=== PATIENT | male | born 1960 | race Caucasian/White ===

== ENCOUNTER → 2016-11-13 | Day surgery (SDC) | payer OTHER ==
[~2016-11-13] MED LIST: ASPI81 PO; BUPIVACAINE HCL PF 0.5% 10 ML VIAL ONE; DOXY150C OR; ENAL20TA PO; GABA400C5 OR; GLIM4 PO; GLUCTAB PO; HYDR10TA16 PO; HYDR12.56 PO; LACTATED RINGER'S 1000 ML INJ 1,000 ML ONE; MIDAZOLAM HCL 2 MG/2 ML VIAL ONE; PROPOFOL 200 MG/20 ML AMP IV ONE; SULF1TAB47 PO; VIAG100T PO; ZOCO80TA PO; ceFAZolin 2 GM PREMIX 50 ML ONE
--- NOTE | 2016-11-14 09:56 | MP ---
cc: NEREIDA LOPEZ DPM, WESLEY M.D. DATE OF SURGERY: 11/13/2016 PREOPERATIVE DIAGNOSIS Chronic left diabetic foot ulcer. POSTOPERATIVE DIAGNOSIS Chronic left diabetic foot ulcer. PROCEDURE PERFORMED Sharp excisional debridement of ulcer down to joint capsule plantar first MPJ with application of Apligraf skin graft. Deep culture taken. ESTIMATED BLOOD LOSS Less than 30 mL. COMPLICATIONS None. ANESTHESIA LMA general with local 5 cc of 0.25% Marcaine plain infiltrated in the area. DRAINS None. TOURNIQUET TIME None. DISPOSITION PACU then DC home once stable per same-day surgery criteria. JUSTIFICATION FOR PROCEDURE A 56-year-old male who has a history of a neuropathic ulcer. This ulcer became very small over the last year or so, however, has drastically increased in size. Multiple attempts at conservative measures including offloading and debridement in the office took place without any resolution. The patient never showed any signs of infections to chronic ulcer. We devised a plan to move forward with sharp excisional debridement with application of skin graft to facilitate healing. The patient understood that this may be the first of many surgeries to get the ulcer to heal. The patient continues to smoke and the patient has moderate glucose control. He is followed by his primary care doctor. PROCEDURE IN DETAIL Under mild sedation the patient was brought into the operating room and placed on the operating table in the supine position. Following the induction of LMA general anesthesia the left lower extremity was scrubbed, prepped and draped in the usual aseptic fashion. The foot was elevated and examined. There was noted to be a callous rimmed full-thickness ulceration at the plantar aspect of the first MPJ. The ulcer initially only appeared to probe approximately 4-5 mm. However upon debriding the wound there was noted to be a deep invagination down to joint capsule. At first I thought this was the sesamoid, however, upon debriding the flexor hallucis longus was then seen and the sesamoids were hard, intact, without any signs of bony pathology. A deep culture was taken at this time. All nonviable tissue was debrided to viable bleeding tissue. Apligraf was then sutured deep within the wound in layers and a bolster bandage applied. Next, a well-padded below the knee Esquivel compressive bandage and a posterior splint was applied. The patient was then extubated uneventfully. She was transferred from OR to PACU with all vital signs stable. The patient is non-weightbearing. The patient will follow-up within six days. The patient will likely need a repeat application unless over the next 2-3 weeks there is significant improvement in the wound. SHEILA Matson /1:35 PM /9:46 AM
== END | disposition home or self-care (01) ==
LOC: ESDC 11:47
PROVIDERS: ATTEND Podiatrist Foot & Ankle Surgery
DX: E11.621 Type 2 diabetes mellitus with foot ulcer (principal); Z79.84 Long term (current) use of oral hypoglycemic drugs; L97.529 Non-pressure chronic ulcer of other part of left foot with unspecified severity
CPT/HCPCS: 00400; 11042; 15275; 82948; 87070; 87102; 87205; 87206; J0690; J2250; J3010; J7120; Q4101

== ENCOUNTER → 2016-12-07 | Day surgery (SDC) | payer OTHER ==
[~2016-12-07] MED LIST changes: -BUPIVACAINE HCL PF 0.5% 10 ML VIAL ONE; +BUPIVACAINE HCL PF 0.75% 30 ML VIAL ONE; +LIDOCAINE 1.5%/EPINEPHrine 1:200,000 PF SOLN 30 ML AMP ONE; -MIDAZOLAM HCL 2 MG/2 ML VIAL ONE; +MIDAZOLAM HCL 5 MG/ML VIAL (1 ML) ONE; +MORPHINE SULFATE 4 MG/ML INJ ONE; +ONDANSETRON HCL 4 MG/2 ML VIAL IV PUSH ONE
--- NOTE | 2016-12-08 15:02 | MP ---
cc: WILDER PACHECO M.D. DATE OF SURGERY: 12/07/2016. PREOPERATIVE DIAGNOSIS: 1. Left shoulder rotator cuff tear. 2. Left shoulder impingement syndrome. 3. Left shoulder labral tear. 4. Left shoulder adhesive capsulitis. POSTOPERATIVE DIAGNOSIS: 1. Left shoulder rotator cuff tear. 2. Left shoulder impingement syndrome. 3. Left shoulder labral tear. 4. Left shoulder adhesive capsulitis. OPERATIVE PROCEDURE PERFORMED: 1. Left shoulder arthroscopic rotator cuff repair. 2. Left shoulder arthroscopic subacromial decompression. 3. Left shoulder arthroscopic extensive debridement of the labral tear. 4. Left shoulder arthroscopic extensive lysis of adhesions with manipulation under anesthesia. SURGEON: Dr. Wilder Pacheco. FERRY ENGINEER: MICKI Gardner ANESTHESIA: General with interscalene block. ESTIMATED BLOOD LOSS: Less than 50 cc. COMPLICATIONS: None. IMPLANTS USED: Arthrex. JUSTIFICATION FOR THE PROCEDURE: This patient is a 56-year-old male who injured his left shoulder. He has had persistent symptoms of pain, weakness and stiffness in regards to his condition. He failed extensive conservative treatment. Clinical exam as well as MRI confirmed the above-named findings. The patient was counselled as to the risks, benefits and alternatives to the above-named proposed surgical procedure and did wish to proceed with surgery. DESCRIPTION OF THE PROCEDURE IN DETAIL: Written consent was obtained. The patient did receive a preoperative anterior scalene block to the left upper extremity. The patient was taken to the operating room and general anesthesia was administered as well as 2 grams of IV Ancef. The patient was carefully turned to the right lateral decubitus position and a lateral arm roll was placed. All bony prominences and pressure points were well padded. The patient's neck was carefully monitored and kept neutral. The left shoulder was then placed with an arthroscopic arm barnes and 10 pounds of traction gently applied. The left shoulder was prepped and draped using isopropyl alcohol, Hibiclens solution and DuraPrep solution. After a time out was performed, a standard posterior and anterior glenohumeral arthroscopic portal was established. The glenohumeral joint revealed extensive evidence of capsulitis and scar tissue formation. There was evidence of extensive labral tearing along the anterior, superior and posterior portions as well. An arthroscopic shaver was introduced from the anterior portal and extensive debridement of the labrum was performed to include the three o'clock position to the twelve o'clock and the nine o'clock position. There was evidence of severe capsulitis and this was also extensively debrided as well with lysis of adhesions. There was evidence of full thickness tear of the rotator cuff tendon as visualized from the glenohumeral joint along the undersurface of the rotator cuff supraspinatus insertion. This was debrided. Attention was turned to the subacromial space where there was evidence of significant impingement and bursitis. An arthroscopic shaver was introduced from a lateral portal. A subacromial decompression was performed. A shaver was used to perform extensive bursectomy. The arthroscopic bur was used to perform an acromioplasty. The was used to release the coracoacromial ligament. An Arthrex Scorpion device was used to shuttle #2 FiberTape suture through the anterior and posterior portions of the torn tendon in a horizontal mattress pattern. A #2 FiberLink suture was also applied. The sutures were then placed through the eyelet of an Arthrex 4.75 mm Bio SwiveLock anchor. The anchor was inserted in the tuberosity after appropriate tensioning of the sutures. There was excellent stability after carefully examining and probing the repair. The arm was then gently taken through a full range of motion with gentle manipulation and again all capsule adhesions were felt to be freed and the rotator cuff repair was intact. At the conclusion of the surgical procedure, the portals were closed with 3-0 Prolene suture. Sterile dressings were applied. The patient was placed into a sling and swathe immobilizer. He tolerated the procedure well with no intraoperative complications noted. NOTE: Priyank De Jesus, physician home health assistant-certified, was present during the entire procedure to include patient positioning and the procedure itself. The medical necessity of a physician home health assistant was indicated in this case due to the complexity of the procedure itself. He assisted with appropriate manipulation of the arm and also manipulation of the camera. He also assisted with passage of sutures and implantation of the suture anchor for the purposes of rotator cuff tendon repair. MD KAYLA Bateman/OMEGA /11:14 AM /2:44 PM
== END | disposition home or self-care (01) ==
LOC: ESDC 08:12
PROVIDERS: ATTEND Orthopaedic Surgery Sports Medicine
DX: M75.122 Complete rotator cuff tear or rupture of left shoulder, not specified as traumatic (principal); M75.42 Impingement syndrome of left shoulder; S43.402A Unspecified sprain of left shoulder joint, initial encounter; M75.02 Adhesive capsulitis of left shoulder; E11.9 Type 2 diabetes mellitus without complications; Z79.84 Long term (current) use of oral hypoglycemic drugs
CPT/HCPCS: 01630; 01991; 29823; 29826; 29827; 64417; 82948; C1713; J0690; J2250; J2270; J2405; J7120

== ENCOUNTER 2018-08-04 19:38 | Inpatient (IN) ==
[2018-08-04] MEDS ORDERED: Piperacil/Tazo 3.375 GM Premix 50 ML IV.SIG ONE (20:24)
[2018-08-04] MEDS ORDERED: Vancomycin Inj 1,250 MG in Sodium Chlor 0.9% Inj 250 ML IV.SIG ONE (20:24)
--- NOTE | 2018-08-04 20:24 | ED ---
HPI General Chief Complaint: Extremity Injury, Lower Stated Complaint: foot ulcer x1 wk Time Seen by Provider: 08/04/18 19:57 Source: patient and family Mode of arrival: ambulatory Limitations: no limitations History of Present Illness HPI Narrative: Patient has history of ulcer to left foot with significant penetration to lateral aspect of proximal phalanx of great toe on the left. Patient has been seen and evaluated by PMD and sent in for direct admission. However, the initiation to admission process was not instituted. For that reason this patient is in the emergency department. Patient has history of neuropathy with loss of sensation to both lower extremities so that he has no pain to those areas. Also he has no history of chills and fever. Related Data Home Medications Medication Instructions Recorded Confirmed aspirin 81 mg PO DAILY 08/04/18 08/04/18 empagliflozin [Jardiance] 25 mg PO DAILY 08/04/18 08/04/18 gabapentin 600 mg PO DAILY 08/04/18 08/04/18 glimepiride 4 mg PO QAM 08/04/18 08/04/18 hydrochlorothiazide 25 mg PO DAILY 08/04/18 08/04/18 hydrocodone-acetaminophen [Macon] 1 tab PO Q4-6H PRN 08/04/18 08/04/18 insulin aspart U-100 [Novolog 15 unit SUBCUT BID 08/04/18 08/04/18 Flexpen U-100 Insulin] insulin detemir U-100 [Levemir 22 unit SUBCUT DAILY 08/04/18 08/04/18 U-100 Insulin] lisinopril 10 mg PO DAILY 08/04/18 08/04/18 simvastatin 80 mg PO QPM 08/04/18 08/04/18 Allergies Allergy/AdvReac Type Severity Reaction Status Date / Time No Known Allergies Allergy Verified 08/04/18 19:47 Review of Systems ROS: all other systems reviewed are negative [facility] Medical History Medical History Diabetes (Acute) Heart attack (Acute) Hypertension (Acute) Osteomyelitis (Acute) Skin cancer (Acute) Surgical History Surgical History H/O heart artery stent (Acute) Social History Social History Substance History: No History of Abuse Smoking Status: Current every day smoker Tobacco Type: Cigars How Often Do You Have a Drink Containing Alcohol: Never Recent Travel in [facility] within the Last 8 Weeks: No Recent Out of Country Travel within the Last 8 Weeks: No Immunization History Tetanus Immunization: <5 Years Exam Narrative Exam Narrative: GENERAL: Alert and oriented SKIN: Focused skin assessment warm/dry. HEAD: Atraumatic. Normocephalic. EYES: Pupils equal and round. No scleral icterus. No injection or drainage. ENT: No nasal bleeding or discharge. Mucous membranes pink and moist. NECK: Trachea midline. No JVD. CARDIOVASCULAR: Regular rate and rhythm. No murmur appreciated. RESPIRATORY: No accessory muscle use. Clear to auscultation. Breath sounds equal bilaterally. GASTROINTESTINAL: Abdomen soft, non-tender, nondistended. Hepatic and splenic margins not palpable. MUSCULOSKELETAL: Penetrating ulcer to medial aspect of left great toe with desquamation and local cellulitis surrounding. Lymphatic: No adenitis or lymphangitis NEUROLOGICAL: Awake and alert. Decreased sensation to both lower extremities Course Initial Documented Vital Signs Temperature 98.9 F 08/04/18 19:43 Pulse Rate 86 08/04/18 19:43 Respiratory Rate 18 08/04/18 19:43 Blood Pressure 129/81 08/04/18 19:43 Pulse Oximetry 99 08/04/18 19:43 Last Documented Vital Signs Temperature 98.9 F 08/04/18 19:43 Pulse Rate 86 08/04/18 19:43 Respiratory Rate 18 08/04/18 19:43 Blood Pressure 129/81 08/04/18 19:43 Pulse Oximetry 99 08/04/18 19:43 Medical Decision Making [facility] Narrative Medical decision making narrative: Patient has penetrating ulcer with potential osteomyelitis of left great foot. Penetration is to the area of the proximal phalanx of the great toe on the left. Patient admitted with IV antibiotics with MRI tomorrow and further evaluation depending on results. Medical Screen Exam Complete: Yes Emergency Medical Condition: Yes Lab Data Result diagrams: 08/04/18 20:30 08/04/18 20:30 Lab Results 08/04/18 08/04/18 Range/Units 20:30 20:30 CBC w Diff Auto diff final WBC 9.8 (4.0-11.0) th/mm3 RBC 4.47 L (4.50-5.90) mil/mm3 Hgb 12.3 L (13.0-17.0) gm/dL Hct 37.5 L (39.0-51.0) % MCV 83.8 (80.0-100.0) fL MCH 27.6 (27.0-34.0) pg MCHC 32.9 (32.0-36.0) % RDW 13.1 (11.6-17.2) % Plt Count 290 (150-450) th/mm3 MPV 8.1 (7.0-11.0) fL Neut % (Auto) 72.8 H (16.0-70.0) % Lymph % (Auto) 16.8 (9.0-44.0) % Wilson % (Auto) 8.1 H (0.0-8.0) % Eos % (Auto) 1.1 (0.0-4.0) % Baso % (Auto) 1.2 (0.0-2.0) % Neut # (Auto) 7.2 (1.8-7.7) th/mm3 Lymph # (Auto) 1.6 (1.0-4.8) th/mm3 Wilson # (Auto) 0.8 (0.0-0.9) th/mm3 Eos # (Auto) 0.1 (0.0-0.4) th/mm3 Baso # (Auto) 0.1 (0.0-0.2) th/mm3 WBC Differential . Differential Comment . Sodium 132 L (136-145) meq/L Potassium 3.7 (3.5-5.1) meq/L Chloride 95 L (98-107) meq/L Carbon Dioxide 25.8 (21.0-32.0) meq/L Anion Gap 11 (5-15) meq/L BUN 32 H (7-18) mg/dL Creatinine 1.80 H (0.60-1.30) mg/dL Estimated GFR 39 L (>89) mL/min Random Glucose 358 H (74-106) mg/dL Calcium 8.1 L (8.5-10.1) mg/dL Discharge Plan Discharge Disposition Patient Disposition: ED Admit(ED Internal Use Only) Discharge Condition Condition: Stable Discharge Order Discharge Orders: ED Use Only Admit Order (Routine); Ordered 08/04/18 Ordered By: Russell Askew Discharge Details Discharge Comment: Penetrating ulcer over proximal phalanx of left great toe; rule out osteomyelitis Physicians Team ED Provider: Russell Askew Primary Care Provider: Mono Cisneros Rxs /Orders / Referrals /Forms Prescriptions: No Action gabapentin 600 mg Tablet 600 mg PO DAILY RF: 0 aspirin 81 mg Tablet,Chewable 81 mg PO DAILY RF: 0 insulin aspart U-100 [Novolog Flexpen U-100 Insulin] 100 unit/mL Insulin Pen 15 unit SUBCUT BID RF: 0 insulin detemir U-100 [Levemir U-100 Insulin] 100 unit/mL Solution 22 unit SUBCUT DAILY RF: 0 simvastatin 80 mg Tablet 80 mg PO QPM RF: 0 hydrocodone-acetaminophen [Macon] 10-325 mg Tablet 1 tab PO Q4-6H PRN (Reason: Pain) RF: 0 lisinopril 10 mg Tablet 10 mg PO DAILY RF: 0 glimepiride 4 mg Tablet 4 mg PO QAM RF: 0 hydrochlorothiazide 25 mg Tablet 25 mg PO DAILY RF: 0 empagliflozin [Jardiance] 25 mg Tablet 25 mg PO DAILY RF: 0 Status ED Status: With Doctor
[2018-08-04 20:45] LABS: Baso # (Auto) 0.1 th/mm3 (0.0-0.2); Baso % (Auto) 1.2 % (0.0-2.0); Eos # (Auto) 0.1 th/mm3 (0.0-0.4); Eos % (Auto) 1.1 % (0.0-4.0); Hematocrit 37.5 % (39.0-51.0); Hemoglobin 12.3 gm/dL (13.0-17.0); Lymph # (Auto) 1.6 th/mm3 (1.0-4.8); Lymph % (Auto) 16.8 % (9.0-44.0); Mean Corpuscular HGB Conc 32.9 % (32.0-36.0); Mean Corpuscular Hemoglobin 27.6 pg (27.0-34.0); Mean Corpuscular Volume 83.8 fL (80.0-100.0); Mean Platelet Volume 8.1 fL (7.0-11.0); Mono # (Auto) 0.8 th/mm3 (0.0-0.9); Mono % (Auto) 8.1 % (0.0-8.0); Neut # (Auto) 7.2 th/mm3 (1.8-7.7); Neut % (Auto) 72.8 % (16.0-70.0); Platelet Count 290 th/mm3 (150-450); Red Blood Count 4.47 mil/mm3 (4.50-5.90); Red Cell Distribution Width 13.1 % (11.6-17.2); White Blood Count 9.8 th/mm3 (4.0-11.0)
[2018-08-04 20:55] LABS: Potassium 3.7 meq/L (3.5-5.1)
[2018-08-04 20:57] LABS: Calcium 8.1 mg/dL (8.5-10.1)
[2018-08-04 20:58] LABS: Carbon Dioxide 25.8 meq/L (21.0-32.0)
[2018-08-04] MEDS ORDERED: Acetaminophen 325 MG Tablet PO PRN (22:40)
[2018-08-04] MEDS ORDERED: Bisacodyl 10 MG Supp RECTAL PRN (22:40)
[2018-08-04] MEDS ORDERED: Dextrose 50% in Water 50 ML Vial IV.PUSH PRN (22:40)
[2018-08-04] MEDS ORDERED: Vancomycin Consult Pharmacy OTHER PRN (22:56)
--- NOTE | 2018-08-04 23:35 | XR ---
EXAM DATE: 08/04/2018 11:30 PM EST AGE/SEX: 58 years / Male INDICATIONS: Infection. Large ulcer left foot. CLINICAL DATA: This is the patient's initial encounter. Patient reports that signs and symptoms have been present for 3 days and indicates a pain score of 4/10. MEDICAL/SURGICAL HISTORY: Diabetes mellitus type II. None. COMPARISON: No prior exams available for comparison. FINDINGS: 3 views of left foot. Moderate severity narrowing and osteophyte formation at the great toe metatarso phalangeal joint. Mild osteophyte formation and narrowing of the great toe interphalangeal joint. Sma ll osteophytes at the second toe distal interphalangeal joint. Bone alignment within normal limits. N o evidence of fracture. Soft tissue defect of the great toe laterally adjacent to the interphalangeal joint and distal phala nx. Slight contour deformity of the lateral distal pole of the great toe proximal phalanx suspicious for early bone erosion. CONCLUSION: Soft tissue ulceration lateral aspect great toe distally. Possible early bone erosion of the distal p ole proximal phalanx indicating possible osteomyelitis. Electronically signed by: Russell Esquivel MD 08/04/2018 11:33 PM EST
[2018-08-04] MEDS: Sod Chloride 0.9% Inj 1,000 ML IV.CONT SCH (23:54)
[2018-08-04] MEDS: Temazepam 15 MG Capsule PO PRN (23:54)
[2018-08-04] MEDS: Enoxaparin Inj 30 MG/0.3 ML Syringe SQ SCH (23:55)
[2018-08-05] MEDS ORDERED: Vancomycin Inj 1,500 MG in Sodium Chlor 0.9% Inj 500 ML IV.SIG ONE (05:00)
[2018-08-05 06:13] LABS: Baso % (Auto) 0.3 % (0.0-2.0); Eos # (Auto) 0.1 th/mm3 (0.0-0.4); Eos % (Auto) 1.4 % (0.0-4.0); Hematocrit 36.2 % (39.0-51.0); Hemoglobin 12.1 gm/dL (13.0-17.0); Lymph % (Auto) 19.3 % (9.0-44.0); Mean Corpuscular HGB Conc 33.3 % (32.0-36.0); Mean Corpuscular Volume 84.1 fL (80.0-100.0); Mean Platelet Volume 7.8 fL (7.0-11.0); Mono # (Auto) 0.9 th/mm3 (0.0-0.9); Mono % (Auto) 9.2 % (0.0-8.0); Neut # (Auto) 7.1 th/mm3 (1.8-7.7); Neut % (Auto) 69.8 % (16.0-70.0); Platelet Count 277 th/mm3 (150-450); Red Cell Distribution Width 13.4 % (11.6-17.2); White Blood Count 10.1 th/mm3 (4.0-11.0)
[2018-08-05 06:15] LABS: Chloride 101 meq/L (98-107); Potassium 3.9 meq/L (3.5-5.1); Sodium 139 meq/L (136-145)
[2018-08-05 06:19] LABS: Calcium 8.2 mg/dL (8.5-10.1)
[2018-08-05 06:20] LABS: Albumin 2.5 g/dL (3.4-5.0); Anion Gap 6 meq/L (5-15); Carbon Dioxide 31.6 meq/L (21.0-32.0)
[2018-08-05 06:31] LABS: Alanine Aminotransferase 30 U/L (12-78); Alkaline Phosphatase 59 U/L (45-117); Aspartate Aminotransferase 17 U/L (15-37); Blood Urea Nitrogen 29 mg/dL (7-18); Glomerular Filtration Rate 48 mL/min (>89); Glucose,Random 121 mg/dL (74-106); Total Protein 7.1 g/dL (6.4-8.2)
--- NOTE | 2018-08-05 08:47 | MB ---
cc: David Chua DPM, Wesley J MD PhD DATE: 08/05/2018 REASON FOR CONSULTATION: Left foot ulcer infection, cellulitis. HISTORY OF PRESENT ILLNESS: This is a 58-year-old male who is well-known to my practice. The patient approximately 1 week ago noted a significant redness of the hallux after a trip to [place]. He presented to urgent care in which he was given a prescription for clindamycin. The patient had no obvious fevers, chills. The patient was seen yesterday in my office. The presentation of the infection was severe with soft tissue loss involving the hallux, severe proximal spreading cellulitis. I advised the patient to present to the emergency room for IV antibiotics, evaluation, and treatment for likely osteomyelitis with severe skin and soft tissue infection. Currently, I am seeing the patient bedside. He has had an uneventful evening. He denies any pain at this time. PAST MEDICAL HISTORY: Diabetes, heart attack, hypertension, osteomyelitis, skin cancer, chronic ulceration of the left foot, as well as peripheral neuropathy. PAST SURGICAL HISTORY: Heart artery stenting. Also, excision of skin cancer plantar foot by plastic surgery with flap advancement. ALLERGIES: NO KNOWN DRUG ALLERGIES. ACTIVE MEDICATIONS: Reviewed and verified. OUTPATIENT/INPATIENT MEDICATIONS: Reviewed and verified. The patient is receiving vancomycin and Zosyn. SOCIAL HISTORY: The patient is a tobacco user, cigar. PHYSICAL EXAMINATION: VITAL SIGNS: Temperature 97.5, pulse rate 76, respiratory rate 18, blood pressure 123/67. He is saturating 95% on room air. GENERAL: Alert and oriented male seen at bedside exhibiting nonlabored respirations. He is verbal appropriate. EXTREMITIES: Left lower extremity focused exam: There is noted to be a slight decrease in erythema and edema localized to the patient's forefoot. There is exposed IPJ capsule and probing directly to bone at the lateral aspect of the hallux. There is a slight malodor. There is mixed serosanguineous purulent drainage. This appears to be unchanged from the office visit. Wound measurements are approximately 3 cm x 2.5 cm. There is a callus mix fibrotic pinhole wound to the plantar aspect of the 1st MPJ. This appears to communicate with the abscess that appears to be open and draining. Upon attempting range of motion of the 1st MPJ, it is limited. Sensation is significantly decreased to light touch and deep pressure. The foot is warm. Pulses are palpable, however, somewhat decreased. The right lower extremity is free from any obvious ulcer or infection. LABORATORY DATA: White blood cell 10.1, hemoglobin and hematocrit 12 and 36, platelet count is 277. Chem-7: Sodium 139, potassium 3.9, chloride 101, CO2 of 31.6, BUN is 29, creatinine 1.5, random glucose is 121. Of note, prior to admission it was 358. AST is 17, ALT is 30. Albumin was 2.5. Microbial wound and blood cultures were ordered and pending. ASSESSMENT AND PLAN: Severe left hallux soft tissue infection and chronic ulceration, rule out osteomyelitis. The plan is an MRI and arterial Doppler to verify circulation as well as the extent of the infection. The plan is likely within the next 24 hours for an operative debridement with possible wound VAC application to assist with wound healing. My recommendation is smoking cessation, hyperglycemic control, and continue to monitor kidney function. Thank you for medicine for admitting this patient. I will continue to follow along. Anticipation of reviewing arterial and MRI studies with orders to follow with surgery likely tomorrow. Infectious disease is likely indicated on this case due to the severity of the infection. At minimum, the patient would need at least 2-4 weeks of IV antibiotics. SHEILA Matson , 07:25 AM , 07:34 AM
[2018-08-05] MEDS ORDERED: hydroCHLOROthiazide 25 MG Tablet PO SCH (09:00)
[2018-08-05] MEDS: Gabapentin 300 MG Capsule PO SCH (09:03)
[2018-08-05] MEDS: Lisinopril 10 MG Tablet PO SCH (09:04)
[2018-08-05] MEDS: Senna/Docusate Sodium 8.6/50 MG Tablet PO SCH ×2 (09:04→21:19)
[2018-08-05] MEDS: Glimepiride 4 MG Tablet PO SCH (09:04)
[2018-08-05] MEDS: Insulin NovoLOG Aspart Correctional Sugar Inj SQ SCH ×4 (09:05→21:23)
[2018-08-05] MEDS: Insulin Detemir Inj 1,000 UNIT/10 ML Vial SQ SCH (09:06)
[2018-08-05] MEDS: Sod Chloride 0.9% Inj 1,000 ML IV.CONT SCH ×3 (10:04→21:30)
[2018-08-05] MEDS ORDERED: Gadobutrol PF 10 MMOL/10 ML Vial (for RAD) IV.SIG ONE (10:44)
--- NOTE | 2018-08-05 11:12 | MR ---
EXAM DATE: 08/05/2018 10:54 AM EST AGE/SEX: 58 years / Male INDICATIONS: Osteomyelitis. Wound left foot near great toe. CLINICAL DATA: This is the patient's initial encounter. Patient reports that signs and symptoms have been present for 3 days and indicates a pain score of 4/10. MEDICAL/SURGICAL HISTORY: Diabetes mellitus type II. Hypertension. . Great toe right foot. COMPARISON: [facility], FOOT COMPLETE LEFT 3V, 08/04/2018. . TECHNIQUE: Multiplanar, multisequence MRI examination was performed without contrast and after th e intravenous administration of 10 ml Gadavist (gadobutrol) single exam dose. FINDINGS: There is marrow edema involving the first proximal phalanx with increased signal on the T2-weighted i mages and decreased signal on the T1-weighted images. After gadolinium administration there is no enh ancement of the proximal phalanx as well. There is adjacent soft tissue swelling along the entire fir st digit greatest distally. Focal ulceration and a linear tract is noted along the inferior soft tissues adjacent to the first in terphalangeal joint extending from the skin to the bony surface. This demonstrates increased signal o n the IR weighted sequence and low signal centrally with surrounding enhancement after gadolinium adm inistration. This measures up to approximately 1.2 x 0.7 cm in greatest diameter. There is normal ma rrow signal in the distal phalanx with no abnormal enhancement. Degenerative changes noted in the int erphalangeal joint and metatarsophalangeal joint with joint space loss and mild spurring. The flexor and extensor tendons appear intact. CONCLUSION: 1. Abnormal enhancement and marrow signal in the first proximal phalanx characteristic of osteomyeli tis. 2. Soft tissue swelling with ulceration along the inferior aspect of the first proximal phalanx with small apparent focal fluid collection with surrounding enhancement which could represent a small abs cess. Electronically signed by: Juan J Celestin MD 08/05/2018 11:11 AM EST
--- NOTE | 2018-08-05 12:07 | P.HP ---
History of Present Illness Service: internal medicine Primary Care Physician: Mono Cisneros MD, PhD History of Present Illness: Patient is a pleasant 58yr old male with hx of diabetes who developed redness and swelling of his left foot up his leg after a trip to [facility]. He was seen at [facility] and diagnosed with cellultis and treated with clindamycin, his follow up visit showed improvement of the lower extremity redness. The patient was continued on clindamycin until yesterday when he had a follow up with his printmaker who knows him well. He took a wound culture according to the patient was concerned with the appearence of the foot as the proximal foot had severe cellulitis and tissue loss by his evaluation. The patient was advised to come to the ER for IV antibiotics and MRI to evaluate for osteomyelitis. The patient states he has undergone surgery for something similar in his rt foot. He also tells me the left foot has had extensive surgery under that big toe for excision of squamous cell with flap placement. 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 He denies any fever , chills or pain . - Diagnosis (1) Osteomyelitis (2) Hypertension (3) Diabetes Review of Systems All other systems reviewed negative except as stated in HPI PMFSH - History History Provided By: Patient, Medical Record - Medical History Medical History: Medical History (Last Updated 08/05/18 @ 12:15 by Janice Dumont MD) Osteomyelitis (Acute) Hypertension (Chronic) Diabetes (Acute) Diabetic neuropathy Heart attack Skin cancer - Surgical History Surgical History: Surgical History (Last Updated 08/05/18 @ 12:01 by Janice Dumont MD) H/O heart artery stent History of squamous cell carcinoma excision - Social History I have reviewed the patient's Social History: Yes - Tobacco History Second Hand Smoke Exposure: Yes Tobacco Use In Past 30 Days: No Smoking Status: Current every day smoker (cigars) Tobacco Type: Cigars - Alcohol History How Often Do You Have a Drink Containing Alcohol: Never - Substance Use History Substance History: No History of Abuse - Travel History Recent Travel in the [facility] Within the Last 8 Weeks: No Recent Travel Out of the Country Within the Last 8 Weeks: No - Immunization History Tetanus Immunization: <5 Years Hx Influenza Vaccine This Season: No Medications and Allergies Active Medications: Active Medications Acetaminophen (Tylenol) 650 mg PO Q4H PRN PRN Reason: Temp > 100.4 Hydrocodone Bitart/Acetaminophen (Taylor 10/325) 1 tab PO Q4H PRN PRN Reason: PAIN SCALE 1 TO 10 Al Hydroxide/Mg Hydroxide (Milk Of Magnesia Liq) 30 ml PO Q12H PRN PRN Reason: Mild Constipation Aspirin (Aspirin Chew) 81 mg PO DAILY [facility] Last Admin: 08/05/18 09:04 Dose: 81 mg Atorvastatin Calcium (Lipitor) 80 mg PO DAILY@1800 [facility] Bisacodyl (Dulcolax Supp) 10 mg RECTAL DAILY PRN PRN Reason: SEVERE CONSITIPATION Dextrose (D50w Vial) 50 ml IV.PUSH UNSCH PRN PRN Reason: PER HYPOGLYCEMIA PROTOCOL Enoxaparin Sodium (Lovenox Inj) 30 mg SQ Q24H [facility] Last Admin: 08/04/18 23:55 Dose: Not Given Gabapentin (Neurontin) 600 mg PO DAILY [facility] Last Admin: 08/05/18 09:03 Dose: 600 mg Glimepiride (Amaryl) 4 mg PO DAILY [facility] Last Admin: 08/05/18 09:04 Dose: 4 mg Glucagon (Glucagon Inj) 1 mg OTHER PRN PRN PRN Reason: for Hypoglycemia Protocol Hydrochlorothiazide (Hydrodiuril) 25 mg PO DAILY [facility] Last Admin: 08/05/18 09:04 Dose: 25 mg Sodium Chloride (Ns Inj) 1,000 mls @ 100 mls/hr IV.CONT .Q10H [facility] Last Admin: 08/05/18 10:04 Dose: Not Given Insulin Aspart (Novolog Insulin Correctional Sugar Inj) 0 unit SQ ACHS [facility]; Protocol Last Admin: 08/05/18 09:05 Dose: Not Given Insulin Detemir (Levemir Inj) 22 unit SQ DAILY [facility] Last Admin: 08/05/18 09:06 Dose: 22 unit Lactulose (Lactulose Liq) 30 ml PO DAILY PRN PRN Reason: SEVERE CONSITIPATION Lisinopril (Prinivil) 10 mg PO DAILY [facility] Last Admin: 08/05/18 09:04 Dose: 10 mg Ondansetron HCl (Zofran Inj) 4 mg IV.PUSH Q6H PRN PRN Reason: NAUSEA OR VOMITING Pharmacy Profile Note (Vancomycin Consult Pharmacy) 1 each OTHER UNSCH PRN PRN Reason: Pharmacy to dose Senna/Docusate Sodium (Radha-Colace) 1 tab PO BID [facility] Last Admin: 08/05/18 09:04 Dose: 1 tab Sennosides (Senokot) 17.2 mg PO Q12H PRN PRN Reason: Moderate Constipation Sodium Chloride (Ns Flush) 2 ml IV.FLUSH PRN PRN PRN Reason: FLUSH AFTER USING IV ACCESS Sodium Chloride (Ns Flush) 2 ml IV.FLUSH BID [facility] Last Admin: 08/05/18 09:05 Dose: Not Given Sodium Chloride (Ns Flush) 2 ml IV.FLUSH PRN PRN PRN Reason: FLUSH AFTER USING IV ACCESS Temazepam (Restoril) 15 mg PO HS PRN PRN Reason: INSOMNIA Last Admin: 08/04/18 23:54 Dose: 15 mg Allergies Allergy/AdvReac Type Severity Reaction Status Date / Time No Known Allergies Allergy Verified 08/04/18 19:47 Home Medications Medication Instructions Recorded Confirmed Type aspirin 81 mg PO DAILY 08/04/18 08/04/18 History empagliflozin [Jardiance] 25 mg PO DAILY 08/04/18 08/04/18 History gabapentin 600 mg PO DAILY 08/04/18 08/04/18 History glimepiride 4 mg PO QAM 08/04/18 08/04/18 History hydrochlorothiazide 25 mg PO DAILY 08/04/18 08/04/18 History hydrocodone-acetaminophen [Taylor] 1 tab PO Q4-6H PRN 08/04/18 08/04/18 History insulin aspart U-100 [Novolog 15 unit SUBCUT BID 08/04/18 08/04/18 History Flexpen U-100 Insulin] insulin detemir U-100 [Levemir 22 unit SUBCUT DAILY 08/04/18 08/04/18 History U-100 Insulin] lisinopril 10 mg PO DAILY 08/04/18 08/04/18 History simvastatin 80 mg PO QPM 08/04/18 08/04/18 History Exam Vital signs: Vital Signs 08/04/18 19:43 08/04/18 22:38 08/05/18 00:00 Temperature 98.9 F 98.3 F 97.5 F L Pulse Rate 86 82 76 Respiratory Rate 18 18 18 Blood Pressure 129/81 126/74 123/67 Pulse Oximetry 99 99 95 08/05/18 08:00 Temperature 97.5 F L Pulse Rate 66 Respiratory Rate 18 Blood Pressure 118/60 Pulse Oximetry 98 Intake & Output 08/04/18 08/05/18 08/05/18 18:59 06:59 18:59 Intake Total 1312.5 / 1312.5 Balance 1312.5 / 1312.5 Weight 107.5 kg Intake: IV 312.5 / 312.5 Zosyn 3.375 GM Premix 50 ML @ 50 / 50 100 mls/hr IV.SIG ONCE ONE Rx#: [id number] Vancomycin Inj 1,250 MG In NS 262.5 / 262.5 Inj 250 ML @ 250 mls/hr IV.SIG ONCE ONE Rx#:[id number] Oral 1000 / 1000 Other: # Voids 3 Date of Last Bowel Movement 08/04/18 08/04/18 Weight On Admission 107.5 kg - Constitutional no acute distress, obese - Routine HEENT Exam Head: Present: normocephalic ENT: Present: mucous membranes moist - Routine Neck Exam Present: supple - Routine Respiratory Exam Present: CTA bilaterally - Routine Cardiovascular Exam Present: RRR - Routine Abdominal Exam Present: soft, normoactive bowel sounds - Routine Extremities Exam Present: full ROM Comments: Left foot has been examined and bandaged by Dr Chua - Routine Skin Exam Present: intact - Routine Neurological Exam Present: alert, oriented X3 Results - Labs CBC & Chem 7: 08/05/18 05:05 08/06/18 05:48 Labs: Laboratory Results - last 24 hr 08/04/18 08/04/18 08/05/18 20:30 20:30 05:05 CBC w Diff Auto diff final Auto diff final WBC 9.8 10.1 RBC 4.47 L 4.30 L Hgb 12.3 L 12.1 L Hct 37.5 L 36.2 L MCV 83.8 84.1 MCH 27.6 28.0 MCHC 32.9 33.3 RDW 13.1 13.4 Plt Count 290 277 MPV 8.1 7.8 Neut % (Auto) 72.8 H 69.8 Lymph % (Auto) 16.8 19.3 [place] % (Auto) 8.1 H 9.2 H Eos % (Auto) 1.1 1.4 Baso % (Auto) 1.2 0.3 Neut # (Auto) 7.2 7.1 Lymph # (Auto) 1.6 2.0 [place] # (Auto) 0.8 0.9 Eos # (Auto) 0.1 0.1 Baso # (Auto) 0.1 0.0 WBC Differential . . Differential Comment . . Sodium 132 L Potassium 3.7 Chloride 95 L Carbon Dioxide 25.8 Anion Gap 11 BUN 32 H Creatinine 1.80 H Estimated GFR 39 L POC Glucose Random Glucose 358 H Calcium 8.1 L Total Bilirubin AST ALT Alkaline Phosphatase Total Protein Albumin 08/05/18 08/05/18 08/05/18 05:05 07:24 11:43 CBC w Diff WBC RBC Hgb Hct MCV MCH MCHC RDW Plt Count MPV Neut % (Auto) Lymph % (Auto) [place] % (Auto) Eos % (Auto) Baso % (Auto) Neut # (Auto) Lymph # (Auto) [place] # (Auto) Eos # (Auto) Baso # (Auto) WBC Differential Differential Comment Sodium 139 Potassium 3.9 Chloride 101 Carbon Dioxide 31.6 Anion Gap 6 BUN 29 H Creatinine 1.50 H Estimated GFR 48 L POC Glucose 135 H 146 H Random Glucose 121 H D Calcium 8.2 L Total Bilirubin 0.7 AST 17 ALT 30 Alkaline Phosphatase 59 Total Protein 7.1 Albumin 2.5 L - Imaging Impressions Foot X-Ray 08/04/18 00:00 CONCLUSION: Soft tissue ulceration lateral aspect great toe distally. Possible early bone erosion of the distal pole proximal phalanx indicating possible osteomyelitis. Foot MRI 08/05/18 07:10 CONCLUSION: 1. Abnormal enhancement and marrow signal in the first proximal phalanx characteristic of osteomyelitis. 2. Soft tissue swelling with ulceration along the inferior aspect of the first proximal phalanx with small apparent focal fluid collection with surrounding enhancement which could represent a small abscess. Caprini VTE Risk Assessment Caprini VTE Risk Assessment: Moderate/High Risk (score >= 2) Caprini Risk Assessment Model: Point Value = 1 Point Value = 2 Point Value = 3 Point Value = 5 Age 41-60 Minor surgery BMI > 25 kg/m2 Swollen legs Varicose veins or History of unexplained or recurrent spontaneous Oral contraceptives or hormone replacement Sepsis (< 1 month) Serious lung disease, including pneumonia (< 1 month) Abnormal pulmonary function Acute myocardial infarction Congestive heart failure (< 1 month) History of inflammatory bowel disease Medical patient at bed rest Age 61-74 Arthroscopic surgery Major open surgery (> 45 min) Laparoscopic surgery (> 45 min) Malignancy Confined to bed (> 72 hours) Immobilizing plaster cast Central venous access Age >= 75 History of VTE Family history of VTE Factor V Leiden Prothrombin [id number] Lupus anticoagulant Anticardiolipin antibodies Elevated serum homocysteine Heparin-induced thrombocytopenia Other congenital or acquired thrombophilia Stroke (< 1 month) Elective arthroplasty Hip, pelvis, or leg fracture Acute spinal cord injury (< 1 month) Prophylaxis Regimen: Total Risk Factor Score Risk Level Prophylaxis Regimen 0-1 Low Early ambulation 2 Moderate Order ONE of the following: *Sequential Compression Device (SCD) *Heparin 5000 units SQ BID 3-4 Higher Order ONE of the following medications: *Heparin 5000 units SQ TID *Enoxaparin/Lovenox 40 mg SQ daily (WT < 150 kg, CrCl > 30 mL/min) *Enoxaparin/Lovenox 30 mg SQ daily (WT < 150 kg, CrCl > 10-29 mL/min) *Enoxaparin/Lovenox 30 mg SQ BID (WT < 150 kg, CrCl > 30 mL/min) AND/OR *Sequential Compression Device (SCD) 5 or more Highest Order ONE of the following medications: *Heparin 5000 units SQ TID (Preferred with Epidurals) *Enoxaparin/Lovenox 40 mg SQ daily (WT < 150 kg, CrCl > 30 mL/min) *Enoxaparin/Lovenox 30 mg SQ daily (WT < 150 kg, CrCl > 10-29 mL/min) *Enoxaparin/Lovenox 30 mg SQ BID (WT < 150 kg, CrCl > 30 mL/min) AND *Sequential Compression Device (SCD) Assessment and Plan - Assessment (1) Osteomyelitis Code(s): M86.9 - Osteomyelitis, unspecified Status: Acute Plan: Patient has been admitted for IV antibiotics, I+D by Dr Harshil dent, Will consult Id for antibiotic regimen, follow cultures (2) Hypertension Code(s): I10 - Essential (primary) hypertension Status: Chronic Plan: continue home medications (3) Diabetes Code(s): E11.9 - Type 2 diabetes mellitus without complications Status: Acute Plan: will continue some home medications, cover with sliding scale, he states last [id number] was 7.7 (1) Osteomyelitis Qualifiers: Osteomyelitis location: foot Laterality: left (2) Hypertension Qualifiers: Hypertension type: essential hypertension Qualified Code(s): I10 - Essential (primary) hypertension (3) Diabetes Qualifiers: Diabetes mellitus type: type 2 Diabetes mellitus complication detail: with unspecified neuropathy
--- NOTE | 2018-08-05 18:34 | P.CONID ---
History of Present Illness Service: Infectious disease Consult date: 08/05/18 Requesting Physician: Janice Dumont Reason for Consult: Left foot infection Primary Care Provider: Mono Cisneros MD, PhD Chief Complaint: Left foot infection History of Present Illness: 58? M with known Diabetes for about 16 years and h/o neuropathy developed a left leg cellulitis that extended till his knee and at that time he noticed a blister between his big toe and 2nd toe. He went to urgent care and got Clindamycin and the cellulitis of ryan leg improved but the blister on toe initially looked like it was getting better but then started draining foul smelling fluid so patient saw the Fiber Optic Assembly Worker who sent him to the hospital. MRI is s/o osteomyelitis. Sarah has a past h/o MRSA> Review of Systems Constitutional: Reports chills, Reports fatigue, Reports fever(s) Eyes: Denies blurry vision, Denies bulging eyes, Denies change in vision Ears, Nose, Mouth, and Throat: Denies bleeding gums, Denies bad breath, Denies change in voice, Denies dental pain Cardiovascular: Denies chest pain at rest, Denies chest pain with activity, Denies excessive sweating, Denies fainting Respiratory: Denies change in phlegm color, Denies chest congestion, Denies cough, Denies coughing up blood Gastrointestinal: Denies abdominal pain, Denies belching, Denies heartburn, Denies vomiting Genitourinary: Denies blood in urine, Denies decreased urination, Denies painful urination, Denies side pain Musculoskeletal: Reports body aches, Denies abnormal walking, Denies back pain Skin/Breast: Reports lesions (Left foot) Neurologic: Reports sensory deficit, Reports tingling/numbness/burning sensations, Denies abnormal hearing, Denies abnormal movements, Denies loss of vision Psychiatric: Denies abnormal sleep pattern, Denies behavioral changes PMFSH - History History Provided By: Patient, Medical Record - Medical History Medical History: Medical History (Last Updated 08/05/18 @ 12:15 by Janice Dumont MD) Osteomyelitis (Acute) Hypertension (Chronic) Diabetes (Acute) Diabetic neuropathy Heart attack Skin cancer - Surgical History Surgical History: Surgical History (Last Updated 08/05/18 @ 12:01 by Janice Dumont MD) H/O heart artery stent History of squamous cell carcinoma excision - Tobacco History Second Hand Smoke Exposure: Yes Tobacco Use In Past 30 Days: No Smoking Status: Current every day smoker (cigars) Tobacco Type: Cigars - Alcohol History How Often Do You Have a Drink Containing Alcohol: Never - Substance Use History Substance History: No History of Abuse - Travel History Recent Travel in the [place] Within the Last 8 Weeks: No Recent Travel Out of the Country Within the Last 8 Weeks: No - Immunization History Tetanus Immunization: <5 Years Hx Influenza Vaccine This Season: No Medications and Allergies Active Medications: Active Medications Acetaminophen (Tylenol) 650 mg PO Q4H PRN PRN Reason: Temp > 100.4 Hydrocodone Bitart/Acetaminophen (Bowers 10/325) 1 tab PO Q4H PRN PRN Reason: PAIN SCALE 1 TO 10 Al Hydroxide/Mg Hydroxide (Milk Of Magnesia Liq) 30 ml PO Q12H PRN PRN Reason: Mild Constipation Aspirin (Aspirin Chew) 81 mg PO DAILY [facility] Last Admin: 08/05/18 09:04 Dose: 81 mg Atorvastatin Calcium (Lipitor) 80 mg PO DAILY@1800 [facility] Bisacodyl (Dulcolax Supp) 10 mg RECTAL DAILY PRN PRN Reason: SEVERE CONSITIPATION Dextrose (D50w Vial) 50 ml IV.PUSH UNSCH PRN PRN Reason: PER HYPOGLYCEMIA PROTOCOL Enoxaparin Sodium (Lovenox Inj) 30 mg SQ Q24H [facility] Last Admin: 08/04/18 23:55 Dose: Not Given Gabapentin (Neurontin) 600 mg PO DAILY [facility] Last Admin: 08/05/18 09:03 Dose: 600 mg Glimepiride (Amaryl) 4 mg PO DAILY [facility] Last Admin: 08/05/18 09:04 Dose: 4 mg Glucagon (Glucagon Inj) 1 mg OTHER PRN PRN PRN Reason: for Hypoglycemia Protocol Hydrochlorothiazide (Hydrodiuril) 25 mg PO DAILY [facility] Last Admin: 08/05/18 09:04 Dose: 25 mg Sodium Chloride (Ns Inj) 1,000 mls @ 100 mls/hr IV.CONT .Q10H [facility] Last Admin: 08/05/18 12:49 Dose: 100 mls/hr Ceftriaxone Sodium 2,000 mg/ (Sodium Chloride) 100 mls @ 200 mls/hr IV.SIG Q24H [facility] Daptomycin 600 mg/ Sodium (Chloride) 100 mls @ 200 mls/hr IV.SIG Q24H [facility] Insulin Aspart (Novolog Insulin Correctional Sugar Inj) 0 unit SQ ACHS [facility]; Protocol Last Admin: 08/05/18 17:17 Dose: Not Given Insulin Detemir (Levemir Inj) 22 unit SQ DAILY [facility] Last Admin: 08/05/18 09:06 Dose: 22 unit Lactulose (Lactulose Liq) 30 ml PO DAILY PRN PRN Reason: SEVERE CONSITIPATION Lisinopril (Prinivil) 10 mg PO DAILY [facility] Last Admin: 08/05/18 09:04 Dose: 10 mg Miscellaneous Information ([facility] Ordered Lab Info) 0 each OTHER ONCE ONE Stop: 08/08/18 04:46 Ondansetron HCl (Zofran Inj) 4 mg IV.PUSH Q6H PRN PRN Reason: NAUSEA OR VOMITING Senna/Docusate Sodium (Radha-Colace) 1 tab PO BID [facility] Last Admin: 08/05/18 09:04 Dose: 1 tab Sennosides (Senokot) 17.2 mg PO Q12H PRN PRN Reason: Moderate Constipation Sodium Chloride (Ns Flush) 2 ml IV.FLUSH PRN PRN PRN Reason: FLUSH AFTER USING IV ACCESS Sodium Chloride (Ns Flush) 2 ml IV.FLUSH BID [facility] Last Admin: 08/05/18 09:05 Dose: Not Given Sodium Chloride (Ns Flush) 2 ml IV.FLUSH PRN PRN PRN Reason: FLUSH AFTER USING IV ACCESS Temazepam (Restoril) 15 mg PO HS PRN PRN Reason: INSOMNIA Last Admin: 08/04/18 23:54 Dose: 15 mg Allergies Allergy/AdvReac Type Severity Reaction Status Date / Time No Known Allergies Allergy Verified 08/04/18 19:47 Home Medications Medication Instructions Recorded Confirmed Type aspirin 81 mg PO DAILY 08/04/18 08/04/18 History empagliflozin [Jardiance] 25 mg PO DAILY 08/04/18 08/04/18 History gabapentin 600 mg PO DAILY 08/04/18 08/04/18 History glimepiride 4 mg PO QAM 08/04/18 08/04/18 History hydrochlorothiazide 25 mg PO DAILY 08/04/18 08/04/18 History hydrocodone-acetaminophen [Bowers] 1 tab PO Q4-6H PRN 08/04/18 08/04/18 History insulin aspart U-100 [Novolog 15 unit SUBCUT BID 08/04/18 08/04/18 History Flexpen U-100 Insulin] insulin detemir U-100 [Levemir 22 unit SUBCUT DAILY 08/04/18 08/04/18 History U-100 Insulin] lisinopril 10 mg PO DAILY 08/04/18 08/04/18 History simvastatin 80 mg PO QPM 08/04/18 08/04/18 History Exam Vital signs: Vital Signs 08/04/18 19:43 08/04/18 22:38 08/05/18 00:00 Temperature 98.9 F 98.3 F 97.5 F L Pulse Rate 86 82 76 Respiratory Rate 18 18 18 Blood Pressure 129/81 126/74 123/67 Pulse Oximetry 99 99 95 08/05/18 08:00 08/05/18 12:00 Temperature 97.5 F L 98.2 F Pulse Rate 66 68 Respiratory Rate 18 20 Blood Pressure 118/60 97/48 L Pulse Oximetry 98 96 Intake & Output 08/04/18 08/05/18 08/05/18 18:59 06:59 18:59 Intake Total 1312.5 / 1312.5 1415 / 1415 Balance 1312.5 / 1312.5 1415 / 1415 Weight 107.5 kg Intake: IV 312.5 / 312.5 1415 / 1415 NS Inj 1,000 ML @ 100 mls/hr IV 900 / 900 .CONT .Q10H [facility] Rx#:[id number] Zosyn 3.375 GM Premix 50 ML @ 50 / 50 100 mls/hr IV.SIG ONCE ONE Rx#: [id number] Vancomycin Inj 1,250 MG In NS 262.5 / 262.5 Inj 250 ML @ 250 mls/hr IV.SIG ONCE ONE Rx#:[id number] Vancomycin Inj 1,500 MG In NS 515 / 515 Inj 500 ML @ 257.5 mls/hr IV. SIG ONCE ONE Rx#:[id number] Oral 1000 / 1000 Other: # Voids 3 Date of Last Bowel Movement 08/04/18 08/04/18 Weight On Admission 107.5 kg - Constitutional no acute distress, cooperative - Routine HEENT Exam Head: Present: normocephalic, atraumatic Eye: Present: EOMI, conjunctivae pink. Absent: conjunctival icterus - Routine Neck Exam Present: supple, full ROM. Absent: JVD, carotid bruit - Routine Chest/Breast/Axilla Exam Chest wall: Absent: tenderness, mass - Routine Respiratory Exam Present: CTA bilaterally. Absent: accessory muscle use, rales, respiratory distress, rhonchi - Routine Cardiovascular Exam Present: RRR, S1, S2. Absent: murmur - Routine Abdominal Exam Present: soft, normoactive bowel sounds. Absent: tenderness, distended, firm - Detailed Lower Extremity Exam Lower leg: Left swelling, Left wound, Left erythema, Left warmth Foot/Toes: Left erythema (There is a draining abscess on left big toe with foul smell. Lft big toe bluis discolration and decreased cap return) Results - Labs CBC & Chem 7: 08/05/18 05:05 08/05/18 05:05 Labs: Laboratory Results - last 24 hr 08/04/18 08/04/18 08/05/18 20:30 20:30 05:05 CBC w Diff Auto diff final Auto diff final WBC 9.8 10.1 RBC 4.47 L 4.30 L Hgb 12.3 L 12.1 L Hct 37.5 L 36.2 L MCV 83.8 84.1 MCH 27.6 28.0 MCHC 32.9 33.3 RDW 13.1 13.4 Plt Count 290 277 MPV 8.1 7.8 Neut % (Auto) 72.8 H 69.8 Lymph % (Auto) 16.8 19.3 [place] % (Auto) 8.1 H 9.2 H Eos % (Auto) 1.1 1.4 Baso % (Auto) 1.2 0.3 Neut # (Auto) 7.2 7.1 Lymph # (Auto) 1.6 2.0 [place] # (Auto) 0.8 0.9 Eos # (Auto) 0.1 0.1 Baso # (Auto) 0.1 0.0 WBC Differential . . Differential Comment . . Sodium 132 L Potassium 3.7 Chloride 95 L Carbon Dioxide 25.8 Anion Gap 11 BUN 32 H Creatinine 1.80 H Estimated GFR 39 L POC Glucose Random Glucose 358 H Calcium 8.1 L Total Bilirubin AST ALT Alkaline Phosphatase Total Protein Albumin 1208/05/18 08/05/18 05:05 07:24 11:43 CBC w Diff WBC RBC Hgb Hct MCV MCH MCHC RDW Plt Count MPV Neut % (Auto) Lymph % (Auto) [place] % (Auto) Eos % (Auto) Baso % (Auto) Neut # (Auto) Lymph # (Auto) [place] # (Auto) Eos # (Auto) Baso # (Auto) WBC Differential Differential Comment Sodium 139 Potassium 3.9 Chloride 101 Carbon Dioxide 31.6 Anion Gap 6 BUN 29 H Creatinine 1.50 H Estimated GFR 48 L POC Glucose 135 H 146 H Random Glucose 121 H D Calcium 8.2 L Total Bilirubin 0.7 AST 17 ALT 30 Alkaline Phosphatase 59 Total Protein 7.1 Albumin 2.5 L 08/05/18 16:09 CBC w Diff WBC RBC Hgb Hct MCV MCH MCHC RDW Plt Count MPV Neut % (Auto) Lymph % (Auto) [place] % (Auto) Eos % (Auto) Baso % (Auto) Neut # (Auto) Lymph # (Auto) [place] # (Auto) Eos # (Auto) Baso # (Auto) WBC Differential Differential Comment Sodium Potassium Chloride Carbon Dioxide Anion Gap BUN Creatinine Estimated GFR POC Glucose 152 H Random Glucose Calcium Total Bilirubin AST ALT Alkaline Phosphatase Total Protein Albumin - Imaging Impressions Foot X-Ray 08/04/18 00:00 CONCLUSION: Soft tissue ulceration lateral aspect great toe distally. Possible early bone erosion of the distal pole proximal phalanx indicating possible osteomyelitis. Foot MRI 08/05/18 07:10 CONCLUSION: 1. Abnormal enhancement and marrow signal in the first proximal phalanx characteristic of osteomyelitis. 2. Soft tissue swelling with ulceration along the inferior aspect of the first proximal phalanx with small apparent focal fluid collection with surrounding enhancement which could represent a small abscess. Assessment and Plan (1) Foot osteomyelitis, left Status: Acute Code(s): M86.9 - Osteomyelitis, unspecified (2) Hypertension Status: Chronic Code(s): I10 - Essential (primary) hypertension (3) Diabetes Status: Acute Code(s): E11.9 - Type 2 diabetes mellitus without complications - Plan Follow Blood cultures Follow wound cultures Patient with chronic renal insufficiency- will change IV Vancomycin to Daptomycin for now Pending cultures- will add Ceftriaxone 2 g daily Podiatry to take patient for surgery. (2) Hypertension Qualifiers: Hypertension type: essential hypertension Qualified Code(s): I10 - Essential (primary) hypertension (3) Diabetes Qualifiers: Diabetes mellitus type: type 2 Diabetes mellitus complication detail: with unspecified neuropathy
[2018-08-05] MEDS ORDERED: SODIUM CHLOR 0.9% IV.SIG SCH (19:00)
[2018-08-05] MEDS ORDERED: DAPTOMYCIN IV.SIG SCH (19:00)
[2018-08-05] MEDS: Temazepam 15 MG Capsule PO PRN (21:19)
[2018-08-05] MEDS ORDERED: Vancomycin Inj 1,750 MG in Sodium Chlor 0.9% Inj 500 ML IV.SIG SCH (23:00)
[2018-08-05] MEDS: DAPTOmycin Inj 600 MG in Sodium Chlor 0.9% Inj 100 ML IV.SIG SCH (23:22)
[2018-08-06] MEDS ORDERED: Bupivacaine PF 0.25% Inj 30 ML Vial ONE (06:21)
[2018-08-06] MEDS: Sod Chloride 0.9% Inj 1,000 ML IV.CONT SCH ×2 (06:30→22:24)
[2018-08-06 06:53] LABS: Potassium 3.9 meq/L (3.5-5.1)
[2018-08-06] MEDS ORDERED: Chlorhexidine Gluconate 2% 1 Pack (2 Cloths) TOPICAL ONE (06:56)
[2018-08-06] MEDS ORDERED: Metoprolol Tartrate 25 MG Tablet PO ONE (06:56)
[2018-08-06 06:58] LABS: Calcium 8.3 mg/dL (8.5-10.1); Carbon Dioxide 27.6 meq/L (21.0-32.0)
[2018-08-06] MEDS ORDERED: Sodium Chlor 0.9% Inj 500 ML IV.SIG SCH (07:00)
[2018-08-06] MEDS ORDERED: fentaNYL Citrate Inj 100 MCG/2 ML Ampul ONE (08:15)
[2018-08-06] MEDS: Insulin NovoLOG Aspart Correctional Sugar Inj SQ SCH ×4 (08:59→22:24)
[2018-08-06] MEDS: Senna/Docusate Sodium 8.6/50 MG Tablet PO SCH ×2 (09:04→22:26)
--- NOTE | 2018-08-06 09:24 | MP ---
cc: David Chua DPM DATE OF OPERATION: PREOPERATIVE DIAGNOSIS: Severe left hallux infection, likely osteomyelitis, with chronic ulceration. POSTOPERATIVE DIAGNOSIS: Severe left hallux infection, likely osteomyelitis, with chronic ulceration. PROCEDURE PERFORMED: Incision and drainage with expansile debridement with bone biopsy and application of wound VAC, left hallux. ANESTHESIA: General. INJECTABLES: None. SPECIMENS: Bone for pathology. Skin for pathology. Bone culture for microbial analysis. ESTIMATED BLOOD LOSS: Less than 30 mL. COMPLICATIONS: None. JUSTIFICATION: This is a 58-year-old male with a chronic ulceration. Within the last 5-6 days, had a significant infectious event. He was admitted to the hospital. MRI verified likely osteomyelitis. A Doppler showed a reasonable RENNY. We opted to move forward with incision, drainage, debridement. PROCEDURE IN DETAIL: Under mild sedation, the patient was brought to the operating room, placed on the operating table in the supine position. Following the induction of general anesthesia, the left lower extremity was scrubbed, prepped, and draped in the usual aseptic fashion. The foot was elevated and examined. There was noted to be in a necrotic purulent lateral aspect hallux ulceration with exposed bone, joint, and tendon. This appeared to probe directly to the plantar aspect of the proximal phalanx base. An elliptical incision took place at the plantar aspect of the foot. This skin was sent for pathological analysis. There was noted to be tunneling along the FHL, which directly communicated with the lateral aspect of the hallux IPJ. Utilizing a curette and rongeur, all nonviable tissue was removed. Copious amounts of normal saline was used to flush the area. There was noted to be some bleeding; however plantarly, there was more bleeding than the dorsal and lateral aspect of the hallux. Bone specimen was taken from the proximal phalanx base through the plantar ulceration as well as a bone culture. A wound VAC was applied under adequate seal and suction of the hallux. A full-thickness loss of tissue was noted down to bone and joint capsule, which appeared to be somewhat viable. There was noted to be some bone stability without any obvious complete loss of bony architecture. This appeared to be most consistent acute osteomyelitis. Wound measurements are approximately 2.5 x 2 cm, probing to bone. The patient was transferred from OR to PACU with all vital signs stable. My recommendation is CTA with runoff. I do think that there is likely small vessel disease; however, I am trying to attempt digit salvage or preparation for a hallux amputation. I am recommending vascular surgery evaluation. I notified Dr. Josef Perry. CTA with runoff ordered in PACU and will arrange transfer to the [facility]. The patient was educated on the intraoperative findings, the severity of the infection, and the high likelihood of needing a hallux amputation. He wishes for all digits salvage efforts to be performed. I will continue to follow along with the patient as transferred to the [facility]. SHEILA Matson/corey , 08:27 AM , 08:34 AM
[2018-08-06] MEDS: Gabapentin 300 MG Capsule PO SCH (09:27)
[2018-08-06] MEDS: Lisinopril 10 MG Tablet PO SCH (09:27)
--- NOTE | 2018-08-06 09:38 | ECHRPT ---
EXAM DATE: 08/06/2018 6:53 AM EST AGE/SEX: 58 years / Male INDICATIONS: ulcer with cellulitis CLINICAL DATA: This is the patient's initial encounter. Patient reports that signs and symptoms have been present for 4 - 6 days and indicates a pain score of 3/10. MEDICAL/SURGICAL HISTORY: . diabetes mellitus, heart attack, hypertension, osteomyelitis, skin cancer . heart artery stent COMPARISON: No prior exams available for comparison. TECHNIQUE: Four-cuff ankle and brachial pressures were obtained. Pulse cuff waveform tracings of the ankles were recorded, and ankle-brachial indices were calculated. PRESSURES (mmHg): Brachial (arm) : RIGHT: 120, LEFT: iv site Ankle : RIGHT: 116, LEFT: 118 RENNY : RIGHT: 0.97, LEFT: 0.98 RIGHT: , LEFT: FINDINGS: Ankle brachial indices are in the normal range. CONCLUSION: 1. Normal range bilateral ankle brachial indices. Electronically signed by: Fabien Alfredo MD 08/06/2018 9:37 AM EST
[2018-08-06] MEDS: Insulin Detemir Inj 1,000 UNIT/10 ML Vial SQ SCH (13:19)
--- NOTE | 2018-08-06 13:51 | P.PN ---
Subjective Interval history: was in OR this am with Dr Chua for debridement of wound, Cultures taken of tissue and bone and wound vac placed.Seen last night by DR Ruiz and switched to Daptomycin and rocephin. Physical Exam Vital signs: Vital Signs 08/05/18 16:00 08/05/18 20:00 08/06/18 00:00 Temperature 97.8 F 96.7 F L 96.9 F L Pulse Rate 65 61 60 Respiratory Rate 17 20 18 Blood Pressure 102/56 L 109/59 L 96/61 L Pulse Oximetry 98 96 97 08/06/18 06:15 08/06/18 08:00 08/06/18 08:08 Temperature 96.8 F L 97.2 F L 98 F Pulse Rate 64 62 69 Respiratory Rate 16 20 16 Blood Pressure 116/65 109/51 L 142/51 H Pulse Oximetry 95 98 08/06/18 08:30 08/06/18 12:00 Temperature 96.3 F L Pulse Rate 63 69 Respiratory Rate 16 20 Blood Pressure 133/52 L 128/58 L Pulse Oximetry 97 98 Intake & Output 08/05/18 08/06/18 08/06/18 18:59 06:59 18:59 Intake Total 2415 / 2415 1020 / 1020 1900 / 1900 Output Total 3 / 3 5 / 5 Balance 2412 / 2412 1020 / 1020 1895 / 1895 Intake: IV 1415 / 1415 900 / 900 1200 / 1200 NS Inj 1,000 ML @ 100 mls/hr IV 900 / 900 700 / 700 1200 / 1200 .CONT .Q10H YULIYA Rx#:[id number] Cubicin Inj 600 MG In NS Inj 100 / 100 100 ML @ 200 mls/hr IV.SIG Q24H YULIYA Rx#:[id number] Vancomycin Inj 1,500 MG In NS 515 / 515 Inj 500 ML @ 257.5 mls/hr IV. SIG ONCE ONE Rx#:[id number] Rocephin Inj 2,000 MG In NS Inj 100 / 100 100 ML @ 200 mls/hr IV.SIG Q24H YULIYA Rx#:[id number] Oral 1000 / 1000 120 / 120 Anesthesia Amount 700 / 700 Output: Urine 3 / 3 Estimated Blood Loss 5 / 5 Other: Date of Last Bowel Movement 08/04/18 - Constitutional no acute distress, obese - Routine HEENT Exam Head: Present: normocephalic, atraumatic ENT: Present: mucous membranes moist - Routine Neck Exam Present: supple - Routine Respiratory Exam Present: CTA bilaterally - Routine Cardiovascular Exam Present: RRR, S1, S2 - Routine Abdominal Exam Present: soft - Routine Extremities Exam Comments: rt extremity bandaged with wound vac - Routine Neurological Exam Present: alert, oriented X3 - Routine Psychiatric Exam Present: normal affect, normal thought process Results - Labs CBC & Chem 7: 08/05/18 05:05 08/06/18 05:48 Laboratory Results - last 24 hr 08/05/18 08/05/18 08/05/18 05:05 16:09 21:22 Sodium Potassium Chloride Carbon Dioxide Anion Gap BUN Creatinine Estimated GFR POC Glucose 152 H 148 H Random Glucose Calcium Total Creatine Kinase 60 08/06/18 08/06/18 08/06/18 05:48 06:05 11:41 Sodium 139 Potassium 3.9 Chloride 104 Carbon Dioxide 27.6 Anion Gap 7 BUN 22 H Creatinine 1.10 Estimated GFR 68 L POC Glucose 118 H 132 H Random Glucose 115 H Calcium 8.3 L Total Creatine Kinase Microbiology 08/04/18 20:30 Blood - Peripheral Aerobic Blood Culture - Preliminary No growth in 2 days 08/04/18 20:30 Blood - Peripheral Anaerobic Blood Culture - Preliminary No growth in 2 days 08/04/18 20:15 Blood - Peripheral Aerobic Blood Culture - Preliminary No growth in 2 days 08/04/18 20:15 Blood - Peripheral Anaerobic Blood Culture - Preliminary No growth in 2 days 08/04/18 21:14 Wound - Foot Gram Stain - Final - Imaging Impressions Extremity Arterial Study 08/05/18 00:00 CONCLUSION: 1. Normal range bilateral ankle brachial indices. - Procedures I+D , bone biopsy, wound vac placement by Dr Chua 08/06/2018 Assessment and Plan - Assessment (1) Osteomyelitis Code(s): M86.9 - Osteomyelitis, unspecified Status: Acute Plan: Seen by Dr Luevano yesterday and switched to daptomycin and rocephin. In OR today for I+D cultures and wound vac placement. Bleeding pattern while in OR has raised concern for circulation and ramifications on healing process. Dr Chua has asked for cta and vascular surgery consult.To be transfered to the main today for continued treatment. (2) Hypertension Code(s): I10 - Essential (primary) hypertension Status: Chronic Plan: continue home medications, hctz held yesterday with some improvement in renal function, cont to monitor bp (3) Diabetes Code(s): E11.9 - Type 2 diabetes mellitus without complications Status: Acute Plan: will continue some home medications, cover with sliding scale, he states last hgba1c was 7.7, continue gabapentin for neuropathy, tight sugar control to aide in healing (1) Osteomyelitis Qualifiers: Osteomyelitis location: foot Laterality: left (2) Hypertension Qualifiers: Hypertension type: essential hypertension Qualified Code(s): I10 - Essential (primary) hypertension (3) Diabetes Qualifiers: Diabetes mellitus type: type 2 Diabetes mellitus complication detail: with other skin ulcer
[2018-08-06 17:23] LABS: Hemoglobin A1c 8.5 % (4.3-6.0)
[2018-08-06] MEDS: Temazepam 15 MG Capsule PO PRN (22:27)
--- NOTE | 2018-08-06 23:07 | ECG ---
Date Performed: 08/05/2018 Time Performed: 13:21:57 PTAGE: 58 years EKG: Sinus rhythm NORMAL ECG INTERPRETATION BASED ON A DEFAULT AGE OF 40 YEARS PREVIOUS TRACING : 04/26/2012 07.55 DOCTOR: Nura Barber Interpretating Date/Time 08/06/2018 23:06:34
--- NOTE | 2018-08-07 01:25 | CT ---
EXAM DATE: 08/07/2018 1:06 AM EST AGE/SEX: 58 years / Male INDICATIONS: Osteomyelitis. Wound left foot near great toe. Evaluate for atherosclerosis. CLINICAL DATA: This is the patient's initial encounter. Patient reports that signs and symptoms have been present for 2 days and indicates a pain score of 8/10. MEDICAL/SURGICAL HISTORY: Diabetes. Hypertension. Osteomyelitis. None. RADIATION DOSE: 3.52 CTDI (mGy) COMPARISON: No prior exams available for comparison. TECHNIQUE: Volumetric scanning was performed using a multi-row detector CT scanner during bolus infu woody of 100 ml Omnipaque 350 (iohexol) nonionic water-soluble contrast as a single exam dose. The data was post processed with a variety of visualization algorithms including full volume maximum inte nsity projection, multi-planar sliding thin slab reformation, curved planar reformation, and surface rendering techniques. Using automated exposure control and adjustment of the mA and/or kV according to patient size, radiation dose was kept as low as reasonably achievable to obtain optimal diagnostic quality images. DICOM format image data is available electronically for review and comparison. FINDINGS: FINDINGS: Abdominal Aorta: Diffuse mild calcification of the aorta. Aortic diameter is within normal limits. T here is calcification at the origin of the celiac artery and proximal renal arteries. Celiac and SMA are widely patent. No evidence of significant proximal renal artery stenosis. SUNITA is also patent. Bifurcation: There is moderate noncalcified plaque at the origin of the left common carotid artery r esulting in mild stenosis less than 50%. Right common iliac artery origin is within normal limits. Right Pelvis: There is mild calcification diffusely at the right common iliac and internal iliac art eries. No evidence of significant stenosis. Left Pelvis: Noncalcified plaque at the origin of the left common iliac artery resulting in mild apolinar nosis. No significant stenosis of the external iliac or internal iliac arteries on the left. Right Thigh: Mild calcification of the femoral arteries diffusely. Mild focal narrowing of the dista l superficial femoral artery 14 cm [id number]. Left Thigh: Mild diffuse calcification of the femoral arteries. No evidence of significant stenosis. Right Knee: Mild diffuse luminal irregularity and calcification of the popliteal artery on the right . No evidence of significant stenosis. Left Knee: Mild diffuse luminal irregularity and calcification of the popliteal artery on the left. No evidence of significant stenosis. Right Leg: Diffuse atherosclerotic disease of the anterior tibial, posterior tibial, and peroneal ar teries. The peroneal artery is somewhat diminutive and difficult to visualize distal to the mid calf. Anterior tibial and posterior tibial artery runoff to the foot noted. Left Leg: Diffuse atherosclerotic disease of the anterior tibial, posterior tibial, and peroneal art eries. The peroneal artery is somewhat diminutive and difficult to visualize distal to the mid calf. Anterior tibial and posterior tibial artery runoff to the foot noted. The spleen is enlarged measuring 16 cm in craniocaudal dimension. Liver is homogeneous and within nor mal limits. Pancreas, gallbladder, adrenal glands, and kidneys are unremarkable. No evidence of bowel dilatation. No free air or free fluid. Scattered colonic diverticula but no evidence of acute divert iculitis. Appendix is not visualized. Lung bases are clear. Anterior abdominal wall is intact. Inguin al regions are within normal limits. Degenerative findings of the lumbar spine noted. Left femoral ne ck screws are in place. Mild to moderate fatty atrophy of the lower leg muscles noted left greater th an right. Soft tissue edema of the left great toe noted. CONCLUSION: 1. Diffuse mild atherosclerotic disease of the abdomen and pelvis noted. Diffuse mild atheroscleroti c disease of the lower extremities also noted. Mild stenosis of the proximal left common iliac artery and distal right superficial femoral artery. No evidence of high-grade stenosis. Peroneal arteries a re somewhat diminutive bilaterally. Anterior tibial and posterior tibial arteries are widely patent i n the lower legs bilaterally. 2. Splenomegaly. 3. Degenerative findings of lumbar spine. 4. Soft tissue edema of the left great toe. Electronically signed by: Russell Esquivel MD 08/07/2018 1:24 AM EST
[2018-08-07] MEDS: DAPTOmycin Inj 600 MG in Sodium Chlor 0.9% Inj 100 ML IV.SIG SCH ×2 (05:15→22:12)
[2018-08-07] MEDS: Sod Chloride 0.9% Inj 1,000 ML IV.CONT SCH ×2 (05:15→10:55)
--- NOTE | 2018-08-07 08:06 | P.CONVS ---
History of Present Illness Service: vascular surgery Consult date: 08/07/18 Requesting Physician: David Hart Reason for Consult: osteo, possible PAD Primary Care Provider: Mono Cisneros MD, PhD Chief Complaint: Left foot infection History of Present Illness: 58 yo male with L great toe osteo, had cellulitis previously. + underlying DM. asked to eval for PAD. No symptoms of rest pain. 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 Review of Systems Constitutional: Denies chills, Denies fever(s) PMFSH - History History Provided By: Patient, Medical Record - Medical History Medical History: Medical History (Last Reviewed 08/07/18 @ 08:04 by Mike Perry MD) Osteomyelitis (Acute) Hypertension (Chronic) Diabetes (Acute) Diabetic neuropathy Heart attack Skin cancer - Surgical History Surgical History: Surgical History (Last Reviewed 08/07/18 @ 08:04 by Mike Perry MD) H/O heart artery stent History of squamous cell carcinoma excision - Tobacco History Second Hand Smoke Exposure: Yes Tobacco Use In Past 30 Days: No Smoking Status: Current every day smoker (cigars) Tobacco Type: Cigars - Alcohol History How Often Do You Have a Drink Containing Alcohol: Never - Substance Use History Substance History: No History of Abuse - Travel History Recent Travel in the [place] Within the Last 8 Weeks: No Recent Travel Out of the Country Within the Last 8 Weeks: No - Immunization History Tetanus Immunization: <5 Years Hx Influenza Vaccine This Season: No Medications and Allergies Active Medications: Active Medications Acetaminophen (Tylenol) 650 mg PO Q4H PRN PRN Reason: Temp > 100.4 Hydrocodone Bitart/Acetaminophen (Epworth 10/325) 1 tab PO Q4H PRN PRN Reason: PAIN SCALE 1 TO 10 Al Hydroxide/Mg Hydroxide (Milk Of Magnesia Liq) 30 ml PO Q12H PRN PRN Reason: Mild Constipation Aspirin (Aspirin Chew) 81 mg PO DAILY [facility] Last Admin: 08/06/18 09:04 Dose: Not Given Atorvastatin Calcium (Lipitor) 80 mg PO DAILY@1800 [facility] Last Admin: 08/05/18 20:04 Dose: Not Given Bisacodyl (Dulcolax Supp) 10 mg RECTAL DAILY PRN PRN Reason: SEVERE CONSITIPATION Dextrose (D50w Vial) 50 ml IV.PUSH UNSCH PRN PRN Reason: PER HYPOGLYCEMIA PROTOCOL Enoxaparin Sodium (Lovenox Inj) 30 mg SQ Q24H [facility] Last Admin: 08/04/18 23:55 Dose: Not Given Gabapentin (Neurontin) 600 mg PO DAILY [facility] Last Admin: 08/06/18 09:27 Dose: 600 mg Glimepiride (Amaryl) 4 mg PO DAILY [facility] Last Admin: 08/05/18 09:04 Dose: 4 mg Glucagon (Glucagon Inj) 1 mg OTHER PRN PRN PRN Reason: for Hypoglycemia Protocol Hydrochlorothiazide (Hydrodiuril) 25 mg PO DAILY [facility] Last Admin: 08/05/18 09:04 Dose: 25 mg Sodium Chloride (Ns Inj) 1,000 mls @ 100 mls/hr IV.CONT .Q10H [facility] Last Admin: 08/07/18 05:15 Dose: 30 mls/hr Daptomycin 600 mg/ Sodium (Chloride) 100 mls @ 200 mls/hr IV.SIG Q24H [facility] Last Admin: 08/07/18 05:15 Dose: 200 mls/hr Sodium Chloride (Ns Inj) 500 mls @ 30 mls/hr IV.SIG .Q10H [facility] Last Admin: 08/06/18 07:01 Dose: Not Given Cefepime HCl 2,000 mg/ Sodium (Chloride) 100 mls @ 200 mls/hr IV.SIG Q12H [facility] Insulin Aspart (Novolog Insulin Correctional Sugar Inj) 0 unit SQ ACHS [facility]; Protocol Last Admin: 08/06/18 22:24 Dose: 2 unit Insulin Detemir (Levemir Inj) 22 unit SQ DAILY [facility] Last Admin: 08/06/18 13:19 Dose: 22 unit Lactulose (Lactulose Liq) 30 ml PO DAILY PRN PRN Reason: SEVERE CONSITIPATION Lisinopril (Prinivil) 10 mg PO DAILY [facility] Last Admin: 08/06/18 09:27 Dose: 10 mg Ondansetron HCl (Zofran Inj) 4 mg IV.PUSH Q6H PRN PRN Reason: NAUSEA OR VOMITING Senna/Docusate Sodium (Radha-Colace) 1 tab PO BID [facility] Last Admin: 08/06/18 22:26 Dose: Not Given Sennosides (Senokot) 17.2 mg PO Q12H PRN PRN Reason: Moderate Constipation Sodium Chloride (Ns Flush) 2 ml IV.FLUSH PRN PRN PRN Reason: FLUSH AFTER USING IV ACCESS Sodium Chloride (Ns Flush) 2 ml IV.FLUSH BID [facility] Last Admin: 08/06/18 22:26 Dose: 2 ml Sodium Chloride (Ns Flush) 2 ml IV.FLUSH PRN PRN PRN Reason: FLUSH AFTER USING IV ACCESS Temazepam (Restoril) 15 mg PO HS PRN PRN Reason: INSOMNIA Last Admin: 08/06/18 22:27 Dose: 15 mg Allergies Allergy/AdvReac Type Severity Reaction Status Date / Time No Known Allergies Allergy Verified 08/04/18 19:47 Home Medications Medication Instructions Recorded Confirmed Type aspirin 81 mg PO DAILY 08/04/18 08/04/18 History empagliflozin [Jardiance] 25 mg PO DAILY 08/04/18 08/04/18 History gabapentin 600 mg PO DAILY 08/04/18 08/04/18 History glimepiride 4 mg PO QAM 08/04/18 08/04/18 History hydrochlorothiazide 25 mg PO DAILY 08/04/18 08/04/18 History hydrocodone-acetaminophen [Epworth] 1 tab PO Q4-6H PRN 08/04/18 08/04/18 History insulin aspart U-100 [Novolog 15 unit SUBCUT BID 08/04/18 08/04/18 History Flexpen U-100 Insulin] insulin detemir U-100 [Levemir 22 unit SUBCUT DAILY 08/04/18 08/04/18 History U-100 Insulin] lisinopril 10 mg PO DAILY 08/04/18 08/04/18 History simvastatin 80 mg PO QPM 08/04/18 08/04/18 History Physical Exam Vital Signs / I&O: Vital Signs 08/06/18 08:08 08/06/18 08:30 08/06/18 12:00 Temperature 98 F 96.3 F L Pulse Rate 69 63 69 Respiratory Rate 16 16 20 Blood Pressure 142/51 H 133/52 L 128/58 L Pulse Oximetry 98 97 98 08/06/18 16:00 08/06/18 20:00 08/07/18 00:00 Temperature 97.6 F 98.1 F 98.0 F Pulse Rate 74 69 61 Respiratory Rate 20 18 20 Blood Pressure 132/64 110/57 L 129/60 Pulse Oximetry 99 96 97 08/07/18 04:00 Temperature 97.9 F Pulse Rate 64 Respiratory Rate 16 Blood Pressure 127/62 Pulse Oximetry 97 Intake & Output 08/06/18 08/07/18 08/07/18 18:59 06:59 18:59 Intake Total 2550 / 2550 2100 / 2100 Output Total 5 / 5 600 / 600 Balance 2545 / 2545 1500 / 1500 Intake: IV 1200 / 1200 2100 / 2100 NS Inj 1,000 ML @ 100 mls/hr IV 1200 / 1200 2000 / 2000 .CONT .Q10H YULIYA Rx#:[id number] Rocephin Inj 2,000 MG In NS Inj 100 / 100 100 ML @ 200 mls/hr IV.SIG Q24H YULIYA Rx#:[id number] Oral 650 / 650 Anesthesia Amount 700 / 700 Output: Urine 600 / 600 Estimated Blood Loss 5 / Other: # Voids 4 2 Date of Last Bowel Movement 08/06/18 # Bowel Movements 0 Neuro: alert, oriented, no distress HEENT: NC/AT Neck: no JVD Heart: reg rate, no M Lungs: clear B Vascular: 2+ L DP Extremities: wound vac on great toe Laboratory Results - last 24 hr 08/05/18 08/06/18 08/06/18 05:05 11:41 16:47 POC Glucose 132 H 218 H Hemoglobin A1c 8.5 H 08/06/18 08/07/18 22:18 07:31 POC Glucose 183 H 121 H Hemoglobin A1c Microbiology 08/04/18 21:14 Gram Stain - Final Wound - Foot Wound Culture - Preliminary 08/04/18 20:30 Aerobic Blood Culture - Preliminary Blood - Peripheral No growth in 2 days Anaerobic Blood Culture - Preliminary No growth in 2 days 08/04/18 20:15 Aerobic Blood Culture - Preliminary Blood - Peripheral No growth in 2 days Anaerobic Blood Culture - Preliminary No growth in 2 days Impressions Extremity Arterial Study 08/05/18 00:00 CONCLUSION: 1. Normal range bilateral ankle brachial indices. Foot MRI 08/05/18 07:10 CONCLUSION: 1. Abnormal enhancement and marrow signal in the first proximal phalanx characteristic of osteomyelitis. 2. Soft tissue swelling with ulceration along the inferior aspect of the first proximal phalanx with small apparent focal fluid collection with surrounding enhancement which could represent a small abscess. Aorta w/Runoff CTA 08/06/18 00:00 CONCLUSION: 1. Diffuse mild atherosclerotic disease of the abdomen and pelvis noted. Diffuse mild atherosclerotic disease of the lower extremities also noted. Mild stenosis of the proximal left common iliac artery and distal right superficial femoral artery. No evidence of high-grade stenosis. Peroneal arteries are somewhat diminutive bilaterally. Anterior tibial and posterior tibial arteries are widely patent in the lower legs bilaterally. 2. Splenomegaly. 3. Degenerative findings of lumbar spine. 4. Soft tissue edema of the left great toe. Assessment and Plan - Assessment (1) Osteomyelitis Code(s): M86.9 - Osteomyelitis, unspecified Status: Acute - Plan Palpable DP, normal ABIs and no significant occlusive disease on CTA. Can proceed with any podiatry procedure needed. No vascular intervention needed. Should be on ASA/statin for cardiovascular risk factor modification. D/w Dr. Harshil Perry MD [facility] [phone] (1) Osteomyelitis Qualifiers: Osteomyelitis location: foot Laterality: left
[2018-08-07] MEDS: Insulin NovoLOG Aspart Correctional Sugar Inj SQ SCH ×4 (08:23→21:25)
[2018-08-07] MEDS: Glimepiride 4 MG Tablet PO SCH (08:24)
[2018-08-07] MEDS: Senna/Docusate Sodium 8.6/50 MG Tablet PO SCH ×2 (08:24→21:25)
[2018-08-07] MEDS: Lisinopril 10 MG Tablet PO SCH (08:26)
[2018-08-07] MEDS: Gabapentin 300 MG Capsule PO SCH (08:26)
[2018-08-07] MEDS: Insulin Detemir Inj 1,000 UNIT/10 ML Vial SQ SCH (08:27)
--- NOTE | 2018-08-07 08:30 | P.PNPOD ---
Subjective Interval history: No event over night, Vascular has seen pt Physical Exam Vital signs: Vital Signs 08/06/18 08:30 08/06/18 12:00 08/06/18 16:00 Temperature 96.3 F L 97.6 F Pulse Rate 63 69 74 Respiratory Rate 16 20 20 Blood Pressure 133/52 L 128/58 L 132/64 Pulse Oximetry 97 98 99 08/06/18 20:00 08/07/18 00:00 08/07/18 04:00 Temperature 98.1 F 98.0 F 97.9 F Pulse Rate 69 61 64 Respiratory Rate 18 20 16 Blood Pressure 110/57 L 129/60 127/62 Pulse Oximetry 96 97 97 08/07/18 08:00 Temperature 97.8 F Pulse Rate 60 Respiratory Rate 20 Blood Pressure 129/61 Pulse Oximetry 98 Intake & Output 08/06/18 08/07/18 08/07/18 18:59 06:59 18:59 Intake Total 2550 / 2550 2100 / 2100 Output Total 5 / 5 600 / 600 Balance 2545 / 2545 1500 / 1500 Intake: IV 1200 / 1200 2100 / 2100 NS Inj 1,000 ML @ 100 mls/hr IV 1200 / 1200 2000 / [address] [facility] Rx#:[id number] Rocephin Inj 2,000 MG In NS Inj 100 / 100 100 ML @ 200 mls/hr IV.SIG Q24H [facility] Rx#:[id number] Oral 650 / 650 Anesthesia Amount 700 / 700 Output: Urine 600 / 600 Estimated Blood Loss 5 / 5 Other: # Voids 4 2 Date of Last Bowel Movement 08/06/18 # Bowel Movements 0 - Constitutional no acute distress - Neurological Alert and oriented x3 - Routine Extremities Exam Comments: Left hallux with wound vac intact moderate redness to hallux. toes remains pink Medications and Allergies Active Medications: Active Medications Acetaminophen (Tylenol) 650 mg PO Q4H PRN PRN Reason: Temp > 100.4 Hydrocodone Bitart/Acetaminophen ([place] 10/325) 1 tab PO Q4H PRN PRN Reason: PAIN SCALE 1 TO 10 Al Hydroxide/Mg Hydroxide (Milk Of Magnesia Liq) 30 ml PO Q12H PRN PRN Reason: Mild Constipation Aspirin (Aspirin Chew) [address] [facility] Last Admin: 08/06/18 09:04 Dose: Not Given Atorvastatin Calcium (Lipitor) 80 mg PO DAILY@1800 [facility] Last Admin: 08/05/18 20:04 Dose: Not Given Bisacodyl (Dulcolax Supp) 10 mg RECTAL DAILY PRN PRN Reason: SEVERE CONSITIPATION Dextrose (D50w Vial) 50 ml IV.PUSH UNSCH PRN PRN Reason: PER HYPOGLYCEMIA PROTOCOL Enoxaparin Sodium (Lovenox Inj) [address] [facility] Last Admin: 08/04/18 23:55 Dose: Not Given Gabapentin (Neurontin) [address] [facility] Last Admin: 08/06/18 09:27 Dose: 600 mg Glimepiride (Amaryl) [address] [facility] Last Admin: 08/07/18 08:24 Dose: Not Given Glucagon (Glucagon Inj) 1 mg OTHER PRN PRN PRN Reason: for Hypoglycemia Protocol Hydrochlorothiazide (Hydrodiuril) [address] [facility] Last Admin: 08/05/18 09:04 Dose: 25 mg Sodium Chloride (Ns Inj) 1,000 mls @ 100 mls/hr IV.CONT .Q10H [facility] Last Admin: 08/07/18 05:15 Dose: 30 mls/hr Daptomycin 600 mg/ Sodium (Chloride) 100 mls @ 200 mls/hr IV.SIG Q24H [facility] Last Admin: 08/07/18 05:15 Dose: 200 mls/hr Sodium Chloride (Ns Inj) 500 mls @ 30 mls/hr IV.SIG .Q10H [facility] Last Admin: 08/06/18 07:01 Dose: Not Given Cefepime HCl 2,000 mg/ Sodium (Chloride) 100 mls @ 200 mls/hr IV.SIG Q12H [facility] Insulin Aspart (Novolog Insulin Correctional Sugar Inj) [address] [facility]; Protocol Last Admin: 08/07/18 08:23 Dose: Not Given Insulin Detemir (Levemir Inj) [address] [facility] Last Admin: 08/06/18 13:19 Dose: 22 unit Lactulose (Lactulose Liq) 30 ml PO DAILY PRN PRN Reason: SEVERE CONSITIPATION Lisinopril (Prinivil) [address] [facility] Last Admin: 08/06/18 09:27 Dose: 10 mg Ondansetron HCl (Zofran Inj) 4 mg IV.PUSH Q6H PRN PRN Reason: NAUSEA OR VOMITING Senna/Docusate Sodium (Radha-Colace) [address] [facility] Last Admin: 08/07/18 08:24 Dose: Not Given Sennosides (Senokot) 17.2 mg PO Q12H PRN PRN Reason: Moderate Constipation Sodium Chloride (Ns Flush) 2 ml IV.FLUSH PRN PRN PRN Reason: FLUSH AFTER USING IV ACCESS Sodium Chloride (Ns Flush) [address] [facility] Last Admin: 08/06/18 22:26 Dose: 2 ml Sodium Chloride (Ns Flush) 2 ml IV.FLUSH PRN PRN PRN Reason: FLUSH AFTER USING IV ACCESS Temazepam (Restoril) 15 mg PO HS PRN PRN Reason: INSOMNIA Last Admin: 08/06/18 22:27 Dose: 15 mg Allergies Allergy/AdvReac Type Severity Reaction Status Date / Time No Known Allergies Allergy Verified 08/04/18 19:47 Home Medications Medication Instructions Recorded Confirmed Type aspirin 81 mg PO DAILY 08/04/18 08/04/18 History empagliflozin [Jardiance] 25 mg PO DAILY 08/04/18 08/04/18 History gabapentin 600 mg PO DAILY 08/04/18 08/04/18 History glimepiride 4 mg PO QAM 08/04/18 08/04/18 History hydrochlorothiazide 25 mg PO DAILY 08/04/18 08/04/18 History hydrocodone-acetaminophen [[place]] 1 tab PO Q4-6H PRN 08/04/18 08/04/18 History insulin aspart U-100 [Novolog 15 unit SUBCUT BID 08/04/18 08/04/18 History Flexpen U-100 Insulin] insulin detemir U-100 [Levemir 22 unit SUBCUT DAILY 08/04/18 08/04/18 History U-100 Insulin] lisinopril 10 mg PO DAILY 08/04/18 08/04/18 History simvastatin 80 mg PO QPM 08/04/18 08/04/18 History Results - Labs CBC & Chem 7: 08/05/18 05:05 08/06/18 05:48 Laboratory Results - last 24 hr 08/05/18 08/06/18 08/06/18 05:05 11:41 16:47 POC Glucose 132 H 218 H Hemoglobin A1c 8.5 H 08/06/18 08/07/18 22:18 07:31 POC Glucose 183 H 121 H Hemoglobin A1c Microbiology 08/04/18 21:14 Wound - Foot Gram Stain - Final 08/04/18 21:14 Wound - Foot Wound Culture - Preliminary 08/04/18 20:30 Blood - Peripheral Aerobic Blood Culture - Preliminary No growth in 2 days 08/04/18 20:30 Blood - Peripheral Anaerobic Blood Culture - Preliminary No growth in 2 days 08/04/18 20:15 Blood - Peripheral Aerobic Blood Culture - Preliminary No growth in 2 days 08/04/18 20:15 Blood - Peripheral Anaerobic Blood Culture - Preliminary No growth in 2 days - Imaging Impressions Extremity Arterial Study 08/05/18 00:00 CONCLUSION: 1. Normal range bilateral ankle brachial indices. Aorta w/Runoff CTA 08/06/18 00:00 CONCLUSION: 1. Diffuse mild atherosclerotic disease of the abdomen and pelvis noted. Diffuse mild atherosclerotic disease of the lower extremities also noted. Mild stenosis of the proximal left common iliac artery and distal right superficial femoral artery. No evidence of high-grade stenosis. Peroneal arteries are somewhat diminutive bilaterally. Anterior tibial and posterior tibial arteries are widely patent in the lower legs bilaterally. 2. Splenomegaly. 3. Degenerative findings of lumbar spine. 4. Soft tissue edema of the left great toe. - Procedures I+D , bone biopsy, wound vac placement by Dr Chua 08/06/2018 Assessment and Plan - Assessment (1) Abscess of left foot including toes Code(s): L02.612 - Cutaneous abscess of left foot Status: Acute (2) Foot osteomyelitis, left Code(s): M86.9 - Osteomyelitis, unspecified Status: Acute - Plan Status post incision and drainage bone debridement with application of wound VAC day 1. Patient's infection remains quite severe and the likelihood of needing hallux amputation in the future is quite high. The patient is against hallux amputation at this point Continue wound wound vac, will advise tomorrow if heading in the right direction. Vascular feels the patient will heal hallux amputation nicely however the patient wishes for digit salvage efforts. Patient will likely need home wound VAC and IV antibiotics pathology is still pending. We will see the patient tomorrow in a.m.
--- NOTE | 2018-08-07 12:23 | P.PNID ---
Subjective Remarks: ID follow-up. ID reconsult was requested because the patient was transferred from [facility] to [facility]. Followed by podiatry who did surgery and placed a wound VAC onto the left great toe wound. Wound cultures pending. Notes reviewed. Patient in no acute distress. 58 yo M with known Diabetes for about 16 years and h/o neuropathy developed a left leg cellulitis that extended till his knee and at that time he noticed a blister between his big toe and 2nd toe. He went to urgent care and got Clindamycin and the cellulitis of the leg improved but the blister on toe initially looked like it was getting better but then started draining foul smelling fluid so patient saw the Sand Technologist who sent him to the hospital. MRI is s/o osteomyelitis. 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 Allergies/Adverse Reactions: Allergies No Known Allergies Allergy (Verified 08/04/18 19:47) Objective Vital Signs 08/06/18 16:00 08/06/18 20:00 08/07/18 00:00 Temperature 97.6 F 98.1 F 98.0 F Pulse Rate 74 69 61 Respiratory Rate 20 18 20 Blood Pressure 132/64 110/57 L 129/60 Pulse Oximetry 99 96 97 08/07/18 04:00 08/07/18 08:00 08/07/18 11:54 Temperature 97.9 F 97.8 F 97.9 F Pulse Rate 64 60 60 Respiratory Rate 16 20 20 Blood Pressure 127/62 129/61 122/58 L Pulse Oximetry 97 98 96 Intake & Output 08/06/18 08/07/18 08/07/18 18:59 06:59 18:59 Intake Total 2550 / 2550 2100 / 2100 560 / 560 Output Total 5 / 5 600 / 600 Balance 2545 / 2545 1500 / 1500 560 / 560 Intake: IV 1200 / 1200 2099 / 2100 200 / 200 NS Inj 1,000 ML @ 100 mls/hr IV 1200 / 1200 2000 / 2000 .CONT .Q10H [facility] Rx#:[id number] Maxipime Inj 2,000 MG In NS Inj 100 / 100 100 ML @ 200 mls/hr IV.SIG Q12H [facility] Rx#:[id number] Cubicin Inj 600 MG In NS Inj 100 / 100 100 ML @ 200 mls/hr IV.SIG Q24H [facility] Rx#:[id number] Rocephin Inj 2,000 MG In NS Inj 100 / 100 100 ML @ 200 mls/hr IV.SIG Q24H [facility] Rx#:[id number] Oral 650 / 650 360 / 360 Anesthesia Amount 700 / 700 Output: Urine 600 / 600 Estimated Blood Loss 5 / 5 Other: # Voids 4 2 1 Date of Last Bowel Movement 08/06/18 08/06/18 # Bowel Movements 0 08/06/18 07:40 Other Fungal Smear - Final No fungal elements seen 08/06/18 07:40 Other Fungal Culture - Pending 08/04/18 21:14 Other - Final 08/04/18 21:14 Wound - Foot Gram Stain - Final 08/04/18 21:14 Wound - Foot Wound Culture - Preliminary pleomorphic gram positive rods 08/04/18 20:30 Blood - Peripheral Aerobic Blood Culture - Preliminary No growth in 3 days 08/04/18 20:30 Blood - Peripheral Anaerobic Blood Culture - Preliminary No growth in 3 days 08/04/18 20:15 Blood - Peripheral Aerobic Blood Culture - Preliminary No growth in 3 days 08/04/18 20:15 Blood - Peripheral Anaerobic Blood Culture - Preliminary No growth in 3 days 08/06/18 07:40 Tissue - Foot Gram Stain - Final 08/06/18 07:40 Tissue - Foot Wound Culture - Pending 08/06/18 07:40 Other Acid Fast Bacilli Smear - Pending 08/06/18 07:40 Other Mycobacterial Culture - Pending Lab - Chemistry Results 08/05/18 08/05/18 08/05/18 05:05 05:05 16:09 Sodium Potassium Chloride Carbon Dioxide Anion Gap BUN Creatinine Estimated GFR POC Glucose 152 H Random Glucose Hemoglobin A1c 8.5 H Calcium Total Creatine Kinase 60 08/05/18 08/06/18 08/06/18 21:22 05:48 06:05 Sodium 139 Potassium 3.9 Chloride 104 Carbon Dioxide 27.6 Anion Gap 7 BUN 22 H Creatinine 1.10 Estimated GFR 68 L POC Glucose 148 H 118 H Random Glucose 115 H Hemoglobin A1c Calcium 8.3 L Total Creatine Kinase 12/08/1208/06/18 08/06/18 11:41 16:47 22:18 Sodium Potassium Chloride Carbon Dioxide Anion Gap BUN Creatinine Estimated GFR POC Glucose 132 H 218 H 183 H Random Glucose Hemoglobin A1c Calcium Total Creatine Kinase 08/07/18 08/07/18 07:31 11:57 Sodium Potassium Chloride Carbon Dioxide Anion Gap BUN Creatinine Estimated GFR POC Glucose 121 H 168 H Random Glucose Hemoglobin A1c Calcium Total Creatine Kinase Imaging: ITS Impressions Foot X-Ray 08/04/18 00:00 CONCLUSION: Soft tissue ulceration lateral aspect great toe distally. Possible early bone erosion of the distal pole proximal phalanx indicating possible osteomyelitis. Extremity Arterial Study 08/05/18 00:00 CONCLUSION: 1. Normal range bilateral ankle brachial indices. Foot MRI 08/05/18 07:10 CONCLUSION: 1. Abnormal enhancement and marrow signal in the first proximal phalanx characteristic of osteomyelitis. 2. Soft tissue swelling with ulceration along the inferior aspect of the first proximal phalanx with small apparent focal fluid collection with surrounding enhancement which could represent a small abscess. Aorta w/Runoff CTA 08/06/18 00:00 CONCLUSION: 1. Diffuse mild atherosclerotic disease of the abdomen and pelvis noted. Diffuse mild atherosclerotic disease of the lower extremities also noted. Mild stenosis of the proximal left common iliac artery and distal right superficial femoral artery. No evidence of high-grade stenosis. Peroneal arteries are somewhat diminutive bilaterally. Anterior tibial and posterior tibial arteries are widely patent in the lower legs bilaterally. 2. Splenomegaly. 3. Degenerative findings of lumbar spine. 4. Soft tissue edema of the left great toe. Physical Exam: GENERAL: Alert and oriented, no acute distress. HEENT: Pupils reactive to light. Extraocular movements intact. No icterus. NECK: Supple without adenopathy. No swelling. LUNGS: Clear to auscultation HEART: Regular rate and rhythm. No murmurs. No rubs. No gallops. ABDOMEN: Bowel sounds present, soft, nontender. EXTREMITIES: No clubbing, cyanosis. Erythema at the right great toe. Vacuum device in place. SKIN: No diffuse rash. NEUROLOGIC: No focal finding. PSYCH: Calm and cooperative. Lines without evidence of infection. Assessment and Plan (1) Foot osteomyelitis, left Status: Acute Code(s): M86.9 - Osteomyelitis, unspecified (2) Hypertension Status: Chronic Code(s): I10 - Essential (primary) hypertension (3) Diabetes Status: Acute Code(s): E11.9 - Type 2 diabetes mellitus without complications - Plan Impression: Wound infection of the right great toe with osteomyelitis. Diabetes mellitus. Cultures pending. Recommendations: Continue vancomycin. Continue cefepime. Monitor the wound culture for antibiotic adjustment. Monitor pathology report. Anticipate the patient will need IV antibiotics on discharge. Further recommendations to follow once cultures becomes available. (2) Hypertension Qualifiers: Hypertension type: essential hypertension Qualified Code(s): I10 - Essential (primary) hypertension (3) Diabetes Qualifiers: Diabetes mellitus type: type 2 Diabetes mellitus complication detail: with other skin ulcer
--- NOTE | 2018-08-07 14:18 | P.PNIM ---
Subjective Interval history: pt irritated that he has to wait on cx results Physical Exam Vital signs: Last Vital Signs Temp 97.9 F 08/07/18 11:54 Pulse 60 08/07/18 11:54 Resp 20 08/07/18 11:54 BP 122/58 L 08/07/18 11:54 Pulse Ox 96 08/07/18 11:54 Narrative: heart reg lung cta abd s/nt ext no edema Results Labs CBC & Chem 7: 08/05/18 05:05 08/06/18 05:48 Assessment and Plan Assessment (1) Foot osteomyelitis, left: Code(s): M86.9 - Osteomyelitis, unspecified Status: Acute (2) Hypertension: Code(s): I10 - Essential (primary) hypertension Status: Chronic (3) Diabetes: Code(s): E11.9 - Type 2 diabetes mellitus without complications Status: Acute Plan 1. toe osteo/deep tissue infection s/p debridement bone bx. pt has wound vac f/u wound cx and bone bx pt on dapto and cefepime for now ID consulted and await picc line and final ID abx reccs seen by vascular . no vascular intervention required. dc once path/cx and abx regimen arranged. dc ivf. 2. dm cont levemir/ssi/amaryl. 3. htn cont brian Progress Note: Quality VTE Deep Vein Thrombosis/Pulmonary Embolism Present on Admission: No _ (1) Diabetes Qualifiers: Chronic kidney disease stage: Diabetes mellitus complication detail: with other skin ulcer Diabetes mellitus complication status: Diabetes mellitus long term care administrator insulin use: Diabetes mellitus macular edema: Diabetes mellitus type: type 2 Diabetic retinopathy severity: Laterality: Proliferative retinopathy type: (2) Foot osteomyelitis, left Qualifiers: Osteomyelitis type: (3) Hypertension Qualifiers: Hypertension type: essential hypertension Qualified Code(s): I10 - Essential (primary) hypertension
[2018-08-07] MEDS: Temazepam 15 MG Capsule PO PRN (21:33)
[2018-08-07] MEDS: Enoxaparin Inj 30 MG/0.3 ML Syringe SQ SCH ×2 (22:12→22:16)
[2018-08-08] MEDS ORDERED: Pharmacy Ordered Lab Info OTHER ONE (04:45)
[2018-08-08] MEDS: Senna/Docusate Sodium 8.6/50 MG Tablet PO SCH ×2 (08:44→20:36)
[2018-08-08] MEDS: Glimepiride 4 MG Tablet PO SCH (08:45)
[2018-08-08] MEDS: Gabapentin 300 MG Capsule PO SCH (08:45)
[2018-08-08] MEDS: Insulin Detemir Inj 1,000 UNIT/10 ML Vial SQ SCH (08:45)
[2018-08-08] MEDS: Lisinopril 10 MG Tablet PO SCH (08:45)
[2018-08-08] MEDS: Insulin NovoLOG Aspart Correctional Sugar Inj SQ SCH ×4 (08:46→20:42)
--- NOTE | 2018-08-08 10:28 | P.PNPOD ---
Subjective Interval history: No events over night anxious to go home Physical Exam Vital signs: Vital Signs 08/07/18 11:54 08/07/18 16:00 08/07/18 20:00 Temperature 97.9 F 97.8 F 97 F L Pulse Rate 60 57 L 61 Respiratory Rate 20 20 20 Blood Pressure 122/58 L 111/53 L 118/56 L Pulse Oximetry 96 96 97 08/08/18 00:00 08/08/18 04:00 08/08/18 08:00 Temperature 97.8 F 97.6 F 98.2 F Pulse Rate 61 55 L 60 Respiratory Rate 20 20 20 Blood Pressure 101/52 L 111/55 L 137/65 Pulse Oximetry 97 97 98 Intake & Output 08/07/18 08/08/18 08/08/18 18:59 06:59 18:59 Intake Total 560 / 560 200 / 200 Output Total 500 / 500 Balance 60 / 60 200 / 200 Intake: IV 200 / 200 200 / 200 Maxipime Inj 2,000 MG In NS Inj 100 / 100 100 / 100 100 ML @ 200 mls/hr IV.SIG Q12H [facility] Rx#:[id number] Cubicin Inj 600 MG In NS Inj 100 / 100 100 / 100 100 ML @ 200 mls/hr IV.SIG Q24H [facility] Rx#:[id number] Oral 360 / 360 Output: Urine 500 / 500 Other: # Voids 2 Date of Last Bowel Movement 08/06/18 08/07/18 08/07/18 - Constitutional no acute distress - Neurological Alert and oriented x3 - Routine Extremities Exam Comments: Left hallux lateral full-thickness wound proximal early red granular tissue noted exposed joint capsule IPJ 2.5 cm 2 cm 1.5 cm depth plantar full-thickness wound IPJ 6 mm to 4 mm probing to flexor tendon. Improvement of redness of the dorsum of the foot, capillary refill time remains of hallux foot remains warm sensation decreased to light touch no crepitus upon range of motion of the digit forefoot hindfoot ankle Medications and Allergies Active Medications: Active Medications Acetaminophen (Tylenol) 650 mg PO Q4H PRN PRN Reason: Temp > 100.4 Hydrocodone Bitart/Acetaminophen ([place] 10/325) 1 tab PO Q4H PRN PRN Reason: PAIN SCALE 1 TO 10 Al Hydroxide/Mg Hydroxide (Milk Of Magnesia Liq) 30 ml PO Q12H PRN PRN Reason: Mild Constipation Aspirin (Aspirin Chew) 81 mg PO DAILY [facility] Last Admin: 08/08/18 08:45 Dose: 81 mg Atorvastatin Calcium (Lipitor) 80 mg PO DAILY@1800 [facility] Last Admin: 08/05/18 20:04 Dose: Not Given Bisacodyl (Dulcolax Supp) 10 mg RECTAL DAILY PRN PRN Reason: SEVERE CONSITIPATION Dextrose (D50w Vial) 50 ml IV.PUSH UNSCH PRN PRN Reason: PER HYPOGLYCEMIA PROTOCOL Enoxaparin Sodium (Lovenox Inj) 30 mg SQ Q24H [facility] Last Admin: 08/07/18 22:16 Dose: Not Given Gabapentin (Neurontin) 600 mg PO DAILY [facility] Last Admin: 08/08/18 08:45 Dose: 600 mg Glimepiride (Amaryl) 4 mg PO DAILY [facility] Last Admin: 08/08/18 08:45 Dose: 4 mg Glucagon (Glucagon Inj) 1 mg OTHER PRN PRN PRN Reason: for Hypoglycemia Protocol Hydrochlorothiazide (Hydrodiuril) 25 mg PO DAILY [facility] Last Admin: 08/05/18 09:04 Dose: 25 mg Daptomycin 600 mg/ Sodium (Chloride) 100 mls @ 200 mls/hr IV.SIG Q24H [facility] Last Infusion: 08/07/18 22:45 Dose: Infused Sodium Chloride (Ns Inj) 500 mls @ 30 mls/hr IV.SIG .Q10H [facility] Last Admin: 08/06/18 07:01 Dose: Not Given Cefepime HCl 2,000 mg/ Sodium (Chloride) 100 mls @ 200 mls/hr IV.SIG Q12H [facility] Last Admin: 08/08/18 08:44 Dose: 200 mls/hr Insulin Aspart (Novolog Insulin Correctional Sugar Inj) 0 unit SQ ACHS [facility]; Protocol Last Admin: 08/08/18 08:46 Dose: 2 unit Insulin Detemir (Levemir Inj) 22 unit SQ DAILY [facility] Last Admin: 08/08/18 08:45 Dose: 22 unit Lactulose (Lactulose Liq) 30 ml PO DAILY PRN PRN Reason: SEVERE CONSITIPATION Lisinopril (Prinivil) 10 mg PO DAILY [facility] Last Admin: 08/08/18 08:45 Dose: 10 mg Ondansetron HCl (Zofran Inj) 4 mg IV.PUSH Q6H PRN PRN Reason: NAUSEA OR VOMITING Senna/Docusate Sodium (Radha-Colace) 1 tab PO BID [facility] Last Admin: 08/08/18 08:44 Dose: Not Given Sennosides (Senokot) 17.2 mg PO Q12H PRN PRN Reason: Moderate Constipation Sodium Chloride (Ns Flush) 2 ml IV.FLUSH PRN PRN PRN Reason: FLUSH AFTER USING IV ACCESS Sodium Chloride (Ns Flush) 2 ml IV.FLUSH BID [facility] Last Admin: 08/08/18 08:46 Dose: 2 ml Sodium Chloride (Ns Flush) 2 ml IV.FLUSH PRN PRN PRN Reason: FLUSH AFTER USING IV ACCESS Temazepam (Restoril) 15 mg PO HS PRN PRN Reason: INSOMNIA Last Admin: 08/07/18 21:33 Dose: 15 mg Allergies Allergy/AdvReac Type Severity Reaction Status Date / Time No Known Allergies Allergy Verified 08/04/18 19:47 Home Medications Medication Instructions Recorded Confirmed Type aspirin 81 mg PO DAILY 08/04/18 08/04/18 History empagliflozin [Jardiance] 25 mg PO DAILY 08/04/18 08/04/18 History gabapentin 600 mg PO DAILY 08/04/18 08/04/18 History glimepiride 4 mg PO QAM 08/04/18 08/04/18 History hydrochlorothiazide 25 mg PO DAILY 08/04/18 08/04/18 History hydrocodone-acetaminophen [[place]] 1 tab PO Q4-6H PRN 08/04/18 08/04/18 History insulin aspart U-100 [Novolog 15 unit SUBCUT BID 08/04/18 08/04/18 History Flexpen U-100 Insulin] insulin detemir U-100 [Levemir 22 unit SUBCUT DAILY 08/04/18 08/04/18 History U-100 Insulin] lisinopril 10 mg PO DAILY 08/04/18 08/04/18 History simvastatin 80 mg PO QPM 08/04/18 08/04/18 History Results - Labs CBC & Chem 7: 08/05/18 05:05 08/08/18 05:31 Laboratory Results - last 24 hr 08/07/18 08/07/18 08/07/18 11:57 17:09 20:17 Creatinine Estimated GFR POC Glucose 168 H 189 H 293 H 08/08/18 08/08/18 05:31 07:54 Creatinine 1.03 Estimated GFR 74 L POC Glucose 185 H Microbiology 08/06/18 07:40 Tissue - Foot Gram Stain - Final 08/06/18 07:40 Tissue - Foot Wound Culture - Preliminary 08/04/18 21:14 Wound - Foot Gram Stain - Final 08/04/18 21:14 Wound - Foot Wound Culture - Preliminary pleomorphic gram positive rods Prevotella bivia 08/06/18 07:40 Other Fungal Smear - Final No fungal elements seen 08/04/18 21:14 Other - Final 08/04/18 20:30 Blood - Peripheral Aerobic Blood Culture - Preliminary No growth in 3 days 08/04/18 20:30 Blood - Peripheral Anaerobic Blood Culture - Preliminary No growth in 3 days 08/04/18 20:15 Blood - Peripheral Aerobic Blood Culture - Preliminary No growth in 3 days 08/04/18 20:15 Blood - Peripheral Anaerobic Blood Culture - Preliminary No growth in 3 days - Procedures I+D , bone biopsy, wound vac placement by Dr Chua 08/06/2018 Assessment and Plan - Assessment (1) Abscess of left foot including toes Code(s): L02.612 - Cutaneous abscess of left foot Status: Acute (2) Foot osteomyelitis, left Code(s): M86.9 - Osteomyelitis, unspecified Status: Acute - Plan Status post incision and drainage bone debridement with application of wound VAC day 2. Wound VAC changed today very mild improvement noted, toe remains viable however severe soft tissue loss once again reviewed with patient. Patient refusing hallux amputation discussion. Bone biopsy is pending, culture was sent to [place] for further analysis. Patient is anxious to go home however explained in great detail we need to verify pathogen and depth of infection to help guide antibiotic treatment in the outpatient setting. I reviewed case with medicine and infectious disease. Cam walking boot ordered to assist with immobilization. Wound VAC orders placed in chart. Dr. Rivera will follow throughout the weekend. I will be back Saturday to evaluate if patient remains in hospital
--- NOTE | 2018-08-08 12:49 | P.PNIM ---
Subjective Interval history: no new complaints Physical Exam Vital signs: Last Vital Signs Temp 98.0 F 08/08/18 12:00 Pulse 58 L 08/08/18 12:00 Resp 20 08/08/18 12:00 BP 146/65 H 08/08/18 12:00 Pulse Ox 96 08/08/18 12:00 Narrative: heart reg lung cta abd s/nt ext no edema wound vac left great toe ...medial deep ulceration and tissue loss Results Labs CBC & Chem 7: 08/05/18 05:05 08/08/18 05:31 Assessment and Plan Assessment (1) Foot osteomyelitis, left: Code(s): M86.9 - Osteomyelitis, unspecified Status: Acute (2) Hypertension: Code(s): I10 - Essential (primary) hypertension Status: Chronic (3) Diabetes: Code(s): E11.9 - Type 2 diabetes mellitus without complications Status: Acute Plan 1. left great toe osteo/deep tissue infection s/p debridement /bone bx. pt has wound vac. changed today 08/[address] Marshall and Dr [place] pt will need picc soon awaiting bone bx and wound cx sent out to [facility] ..?might be Saturday before available pt on dapto and cefepime for now seen by vascular . no vascular intervention required. dc once path/cx and abx regimen arranged. 2. dm cont levemir/ssi/amaryl. 3. 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
--- NOTE | 2018-08-08 14:43 | P.PNID ---
Subjective Remarks: Patient says he feels okay. Anxious. Wound cultures pending. culture sent to [facility] for further ID. Afebrile. 58 yo M with known Diabetes for about 16 years and h/o neuropathy developed a left leg cellulitis that extended till his knee and at that time he noticed a blister between his big toe and 2nd toe. He went to urgent care and got Clindamycin and the cellulitis of the leg improved but the blister on toe initially looked like it was getting better but then started draining foul smelling fluid so patient saw the [facility] who sent him to the hospital. MRI shows sing of osteo. 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 Allergies/Adverse Reactions: Allergies No Known Allergies Allergy (Verified 08/04/18 19:47) Objective Vital Signs 08/07/18 16:00 08/07/18 20:00 08/08/18 00:00 Temperature 97.8 F 97 F L 97.8 F Pulse Rate 57 L 61 61 Respiratory Rate 20 20 20 Blood Pressure 111/53 L 118/56 L 101/52 L Pulse Oximetry 96 97 97 08/08/18 04:00 08/08/18 08:00 08/08/18 12:00 Temperature 97.6 F 98.2 F 98.0 F Pulse Rate 55 L 60 58 L Respiratory Rate 20 20 20 Blood Pressure 111/55 L 137/65 146/65 H Pulse Oximetry 97 98 96 Intake & Output 08/07/18 08/08/18 08/08/18 18:59 06:59 18:59 Intake Total 560 / 560 200 / 200 Output Total 500 / 500 Balance 60 / 60 200 / 200 Intake: IV 200 / 200 200 / 200 Maxipime Inj 2,000 MG In NS Inj 100 / 100 100 / 100 100 ML @ 200 mls/hr IV.SIG Q12H [facility] Rx#:[id number] Cubicin Inj 600 MG In NS Inj 100 / 100 100 / 100 100 ML @ 200 mls/hr IV.SIG Q24H [facility] Rx#:[id number] Oral 360 / 360 Output: Urine 500 / 500 Other: # Voids 2 Date of Last Bowel Movement 08/06/18 08/07/18 08/07/18 08/04/18 20:30 Blood - Peripheral Aerobic Blood Culture - Preliminary No growth in 4 days 08/04/18 20:30 Blood - Peripheral Anaerobic Blood Culture - Preliminary No growth in 4 days 08/04/18 20:15 Blood - Peripheral Aerobic Blood Culture - Preliminary No growth in 4 days 08/04/18 20:15 Blood - Peripheral Anaerobic Blood Culture - Preliminary No growth in 4 days 08/06/18 07:40 Tissue - Foot Gram Stain - Final 08/06/18 07:40 Tissue - Foot Wound Culture - Preliminary 08/04/18 21:14 Wound - Foot Gram Stain - Final 08/04/18 21:14 Wound - Foot Wound Culture - Preliminary pleomorphic gram positive rods Prevotella bivia 08/06/18 07:40 Other Fungal Smear - Final No fungal elements seen 08/06/18 07:40 Other Fungal Culture - Pending 08/04/18 21:14 Other - Final 08/06/18 07:40 Other Acid Fast Bacilli Smear - Pending 08/06/18 07:40 Other Mycobacterial Culture - Pending Lab - Chemistry Results 08/05/18 08/06/18 08/06/18 05:05 16:47 22:18 Creatinine Estimated GFR POC Glucose 218 H 183 H Hemoglobin A1c 8.5 H 08/07/18 08/07/18 08/07/18 07:31 11:57 17:09 Creatinine Estimated GFR POC Glucose 121 H 168 H 189 H Hemoglobin A1c 08/07/18 08/08/18 08/08/18 20:17 05:31 07:54 Creatinine 1.03 Estimated GFR 74 L POC Glucose 293 H 185 H Hemoglobin A1c 08/08/18 12:21 Creatinine Estimated GFR POC Glucose 180 H Hemoglobin A1c Imaging: ITS Impressions Foot X-Ray 08/04/18 00:00 CONCLUSION: Soft tissue ulceration lateral aspect great toe distally. Possible early bone erosion of the distal pole proximal phalanx indicating possible osteomyelitis. Extremity Arterial Study 08/05/18 00:00 CONCLUSION: 1. Normal range bilateral ankle brachial indices. Foot MRI 08/05/18 07:10 CONCLUSION: 1. Abnormal enhancement and marrow signal in the first proximal phalanx characteristic of osteomyelitis. 2. Soft tissue swelling with ulceration along the inferior aspect of the first proximal phalanx with small apparent focal fluid collection with surrounding enhancement which could represent a small abscess. Aorta w/Runoff CTA 08/06/18 00:00 CONCLUSION: 1. Diffuse mild atherosclerotic disease of the abdomen and pelvis noted. Diffuse mild atherosclerotic disease of the lower extremities also noted. Mild stenosis of the proximal left common iliac artery and distal right superficial femoral artery. No evidence of high-grade stenosis. Peroneal arteries are somewhat diminutive bilaterally. Anterior tibial and posterior tibial arteries are widely patent in the lower legs bilaterally. 2. Splenomegaly. 3. Degenerative findings of lumbar spine. 4. Soft tissue edema of the left great toe. Physical Exam: GENERAL: Alert and oriented, no acute distress. HEENT: Pupils reactive to light. Extraocular movements intact. No icterus. NECK: Supple without adenopathy. No swelling. LUNGS: Clear to auscultation HEART: Regular rate and rhythm. No murmurs. No rubs. No gallops. ABDOMEN: Bowel sounds present, soft, nontender. EXTREMITIES: No clubbing, cyanosis. Erythema at the right great toe. Vacuum device in place. SKIN: No diffuse rash. NEUROLOGIC: No focal finding. PSYCH: Calm and cooperative. Lines without evidence of infection. Assessment and Plan (1) Foot osteomyelitis, left Status: Acute Code(s): M86.9 - Osteomyelitis, unspecified (2) Hypertension Status: Chronic Code(s): I10 - Essential (primary) hypertension (3) Diabetes Status: Acute Code(s): E11.9 - Type 2 diabetes mellitus without complications - Plan Impression: Wound infection of the right great toe with osteomyelitis. Diabetes mellitus. Cultures pending. Recommendations: Continue vancomycin. Continue cefepime. Monitor the wound culture for antibiotic adjustment. Monitor pathology report. Anticipate the IV antibiotic on discharge. Need identity and sensitivity of the bacteria before making decision for discharge. Further recommendations to follow once cultures becomes available. Explained to the patient. I expect some results probably by Saturday. Discussed with Dr Vickers and Dr Hart. (2) Hypertension Qualifiers: Hypertension type: essential hypertension Qualified Code(s): I10 - Essential (primary) hypertension (3) Diabetes Qualifiers: Diabetes mellitus type: type 2 Diabetes mellitus complication detail: with other skin ulcer
[2018-08-08] MEDS: DAPTOmycin Inj 600 MG in Sodium Chlor 0.9% Inj 100 ML IV.SIG SCH (20:35)
[2018-08-08] MEDS: Temazepam 15 MG Capsule PO PRN (22:28)
[2018-08-08] MEDS: Enoxaparin Inj 30 MG/0.3 ML Syringe SQ SCH (22:29)
[2018-08-09] MEDS: Gabapentin 300 MG Capsule PO SCH (09:05)
[2018-08-09] MEDS: Insulin Detemir Inj 1,000 UNIT/10 ML Vial SQ SCH (09:05)
[2018-08-09] MEDS: Insulin NovoLOG Aspart Correctional Sugar Inj SQ SCH ×4 (09:05→22:54)
[2018-08-09] MEDS: Lisinopril 10 MG Tablet PO SCH (09:06)
[2018-08-09] MEDS: Glimepiride 4 MG Tablet PO SCH (09:06)
[2018-08-09] MEDS: Senna/Docusate Sodium 8.6/50 MG Tablet PO SCH ×2 (09:07→20:23)
--- NOTE | 2018-08-09 11:54 | P.PNIM ---
Subjective Interval history: frustrated. thinking of AMA Physical Exam Vital signs: Last Vital Signs Temp 97.6 F 08/09/18 08:00 Pulse 55 L 08/09/18 08:00 Resp 20 08/09/18 08:00 BP 123/57 L 08/09/18 08:00 Pulse Ox 95 08/09/18 08:00 Narrative: heart reg lung cta abd s/nt ext no edema wound vac left great toe ...medial deep ulceration and tissue loss Results Labs CBC & Chem 7: 08/05/18 05:05 08/08/18 05:31 Assessment and Plan Assessment (1) Foot osteomyelitis, left: Code(s): M86.9 - Osteomyelitis, unspecified Status: Acute (2) Hypertension: Code(s): I10 - Essential (primary) hypertension Status: Chronic (3) Diabetes: Code(s): E11.9 - Type 2 diabetes mellitus without complications Status: Acute Plan 1. left great toe osteo/deep tissue infection s/p debridement /bone bx. pt has wound vac. changed today 08/[address] Chua and Dr Ribera [facility]. order today. Pt may leave AMA if any delay. bone bx with acute osteo wound cx growing heamophyllis parainfluenza, group strep, anearobes a second cx send to [place] and still pending. pt on dapto and cefepime for now seen by vascular . no vascular intervention required. dc once path/cx and abx regimen arranged. Pt frustrated and keeps talking about AMA. I have given him a thorough explanation again today why he should wait her on the cx result and get the proper treatment plan 2. dm cont levemir/ssi/amaryl. 3. 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
--- NOTE | 2018-08-09 16:08 | P.PNPOD ---
Subjective Interval history: s/p I+D , bone biopsy, wound vac placement by Dr Chua 08/06/2018 Seen at bedside this am in NAD. Physical Exam Vital signs: Vital Signs 08/08/18 20:00 08/09/18 00:00 08/09/18 04:00 Temperature 98 F 97.5 F L 97.3 F L Pulse Rate 66 53 L 62 Respiratory Rate 20 18 20 Blood Pressure 100/58 L 99/46 L 138/66 Pulse Oximetry 97 96 99 08/09/18 08:00 Temperature 97.6 F Pulse Rate 55 L Respiratory Rate 20 Blood Pressure 123/57 L Pulse Oximetry 95 Intake & Output 08/08/18 08/09/18 08/09/18 18:59 06:59 18:59 Intake Total 100 / 100 200 / 200 100 / 100 Balance 100 / 100 200 / 200 100 / 100 Intake: IV 100 / 100 200 / 200 100 / 100 Maxipime Inj 2,000 MG In NS Inj 100 / 100 100 / 100 100 / 100 100 ML @ 200 mls/hr IV.SIG Q12H [facility] Rx#:[id number] Cubicin Inj 600 MG In NS Inj 100 / 100 100 ML @ 200 mls/hr IV.SIG Q24H [facility] Rx#:[id number] Other: # Voids 4 1 Date of Last Bowel Movement 08/07/18 08/09/18 # Bowel Movements 1 Narrative: Intact VAC. Minimal drainage. No change in NVS Medications and Allergies Active Medications: Active Medications Acetaminophen (Tylenol) 650 mg PO Q4H PRN PRN Reason: Temp > 100.4 Hydrocodone Bitart/Acetaminophen (Independence 10/325) 1 tab PO Q4H PRN PRN Reason: PAIN SCALE 1 TO 10 Al Hydroxide/Mg Hydroxide (Milk Of Magnesia Liq) 30 ml PO Q12H PRN PRN Reason: Mild Constipation Aspirin (Aspirin Chew) 81 mg PO DAILY [facility] Last Admin: 08/09/18 09:05 Dose: 81 mg Atorvastatin Calcium (Lipitor) 80 mg PO DAILY@1800 [facility] Last Admin: 08/05/18 20:04 Dose: Not Given Bisacodyl (Dulcolax Supp) 10 mg RECTAL DAILY PRN PRN Reason: SEVERE CONSITIPATION Dextrose (D50w Vial) 50 ml IV.PUSH UNSCH PRN PRN Reason: PER HYPOGLYCEMIA PROTOCOL Enoxaparin Sodium (Lovenox Inj) 30 mg SQ Q24H [facility] Last Admin: 08/08/18 22:29 Dose: Not Given Gabapentin (Neurontin) 600 mg PO DAILY [facility] Last Admin: 08/09/18 09:05 Dose: 600 mg Glimepiride (Amaryl) 4 mg PO DAILY [facility] Last Admin: 08/09/18 09:06 Dose: 4 mg Glucagon (Glucagon Inj) 1 mg OTHER PRN PRN PRN Reason: for Hypoglycemia Protocol Hydrochlorothiazide (Hydrodiuril) 25 mg PO DAILY [facility] Last Admin: 08/05/18 09:04 Dose: 25 mg Daptomycin 600 mg/ Sodium (Chloride) 100 mls @ 200 mls/hr IV.SIG Q24H [facility] Last Infusion: 08/08/18 21:05 Dose: Infused Sodium Chloride (Ns Inj) 500 mls @ 30 mls/hr IV.SIG .Q10H [facility] Last Admin: 08/06/18 07:01 Dose: Not Given Cefepime HCl 2,000 mg/ Sodium (Chloride) 100 mls @ 200 mls/hr IV.SIG Q12H [facility] Last Infusion: 08/09/18 10:38 Dose: Infused Insulin Aspart (Novolog Insulin Correctional Sugar Inj) 0 unit SQ ACHS [facility]; Protocol Last Admin: 08/09/18 12:13 Dose: 2 unit Insulin Detemir (Levemir Inj) 22 unit SQ DAILY [facility] Last Admin: 08/09/18 09:05 Dose: 22 unit Lactulose (Lactulose Liq) 30 ml PO DAILY PRN PRN Reason: SEVERE CONSITIPATION Lisinopril (Prinivil) 10 mg PO DAILY [facility] Last Admin: 08/09/18 09:06 Dose: 10 mg Ondansetron HCl (Zofran Inj) 4 mg IV.PUSH Q6H PRN PRN Reason: NAUSEA OR VOMITING Senna/Docusate Sodium (Radha-Colace) 1 tab PO BID [facility] Last Admin: 08/09/18 09:07 Dose: Not Given Sennosides (Senokot) 17.2 mg PO Q12H PRN PRN Reason: Moderate Constipation Sodium Chloride (Ns Flush) 2 ml IV.FLUSH BID [facility] Last Admin: 08/09/18 09:07 Dose: 2 ml Sodium Chloride (Ns Flush) 2 ml IV.FLUSH PRN PRN PRN Reason: FLUSH AFTER USING IV ACCESS Temazepam (Restoril) 15 mg PO HS PRN PRN Reason: INSOMNIA Last Admin: 08/08/18 22:28 Dose: 15 mg Allergies Allergy/AdvReac Type Severity Reaction Status Date / Time No Known Allergies Allergy Verified 08/04/18 19:47 Home Medications Medication Instructions Recorded Confirmed Type aspirin 81 mg PO DAILY 08/04/18 08/04/18 History empagliflozin [Jardiance] 25 mg PO DAILY 08/04/18 08/04/18 History gabapentin 600 mg PO DAILY 08/04/18 08/04/18 History glimepiride 4 mg PO QAM 08/04/18 08/04/18 History hydrochlorothiazide 25 mg PO DAILY 08/04/18 08/04/18 History hydrocodone-acetaminophen [Independence] 1 tab PO Q4-6H PRN 08/04/18 08/04/18 History insulin aspart U-100 [Novolog 15 unit SUBCUT BID 08/04/18 08/04/18 History Flexpen U-100 Insulin] insulin detemir U-100 [Levemir 22 unit SUBCUT DAILY 08/04/18 08/04/18 History U-100 Insulin] lisinopril 10 mg PO DAILY 08/04/18 08/04/18 History simvastatin 80 mg PO QPM 08/04/18 08/04/18 History Results - Labs CBC & Chem 7: 08/05/18 05:05 08/08/18 05:31 Laboratory Results - last 24 hr 08/08/18 08/08/18 08/09/18 17:23 19:49 07:50 POC Glucose 113 H 243 H 166 H 08/09/18 11:46 POC Glucose 184 H Microbiology 08/04/18 20:30 Blood - Peripheral Aerobic Blood Culture - Final No growth in 5 days 08/04/18 20:30 Blood - Peripheral Anaerobic Blood Culture - Final No growth in 5 days 08/04/18 20:15 Blood - Peripheral Aerobic Blood Culture - Final No growth in 5 days 08/04/18 20:15 Blood - Peripheral Anaerobic Blood Culture - Final No growth in 5 days 08/06/18 07:40 Tissue - Foot Gram Stain - Final 08/06/18 07:40 Tissue - Foot Wound Culture - Final Haemophilus parainfluenzae Mixed Anaerobes Group B beta Strep 08/06/18 07:40 Other Acid Fast Bacilli Smear - Final No acid fast bacilli seen - Procedures I+D , bone biopsy, wound vac placement by Dr Chua 08/06/2018 Assessment and Plan - Assessment (1) Abscess of left foot including toes Code(s): L02.612 - Cutaneous abscess of left foot Status: Acute (2) Foot osteomyelitis, left Code(s): M86.9 - Osteomyelitis, unspecified Status: Acute - Plan Pending final pathology at [facility]. Pending PICC Will contine to f/u.
[2018-08-09] MEDS: Temazepam 15 MG Capsule PO PRN (21:59)
[2018-08-09] MEDS: DAPTOmycin Inj 600 MG in Sodium Chlor 0.9% Inj 100 ML IV.SIG SCH (21:59)
[2018-08-09] MEDS: Enoxaparin Inj 30 MG/0.3 ML Syringe SQ SCH (22:07)
[2018-08-10] MEDS: Lisinopril 10 MG Tablet PO SCH (08:37)
[2018-08-10] MEDS: Glimepiride 4 MG Tablet PO SCH (08:38)
[2018-08-10] MEDS: Gabapentin 300 MG Capsule PO SCH (08:38)
[2018-08-10] MEDS: Insulin Detemir Inj 1,000 UNIT/10 ML Vial SQ SCH (08:38)
[2018-08-10] MEDS: Insulin NovoLOG Aspart Correctional Sugar Inj SQ SCH ×4 (08:44→21:30)
[2018-08-10] MEDS: Senna/Docusate Sodium 8.6/50 MG Tablet PO SCH ×2 (08:45→20:02)
[2018-08-10] MEDS ORDERED: LORazepam 1 MG Tablet PO ONE (13:00)
--- NOTE | 2018-08-10 13:08 | P.PNIM ---
Subjective Interval history: pt anxious. asking for a "nut" pill. he confirmed ativan has worked. Physical Exam Vital signs: Last Vital Signs Temp 97.7 F 08/10/18 08:14 Pulse 50 L 08/10/18 08:14 Resp 16 08/10/18 08:14 BP 128/58 L 08/10/18 08:14 Pulse Ox 99 08/10/18 08:14 Narrative: heart reg lung cta abd s/nt ext no edema wound vac left great toe ...medial deep ulceration and tissue loss Results Labs CBC & Chem 7: 08/05/18 05:05 08/10/18 09:14 Assessment and Plan Assessment (1) Foot osteomyelitis, left: Code(s): M86.9 - Osteomyelitis, unspecified Status: Acute (2) Hypertension: Code(s): I10 - Essential (primary) hypertension Status: Chronic (3) Diabetes: Code(s): E11.9 - Type 2 diabetes mellitus without complications Status: Acute Plan 1. left great toe osteo/deep tissue infection s/p debridement /bone bx. pt has wound vac. changed today 08/[address] Chua and Dr Ribera Picc. order today. Pt may leave AMA if any delay. bone bx with acute osteo wound cx 08/06 growing heamophyllis parainfluenza, group strep, anearobes a second cx from 08/06 sent to [place] to further characterize gram positive bacilli pt on dapto and cefepime for now seen by vascular . no vascular intervention required. dc once path/cx and abx regimen arranged. Pt frustrated and keeps talking about AMA. I have given him a thorough explanation again today why he should wait her on the cx result and get the proper treatment plan I spoke with picc team and they will call ID in AM to decide on picc vs midline but it would seem picc better if more than 4 more weeks iv abx could be needed. They will place it tomorrow once discussed as pt will not accept delay until Saturday. 2. dm cont levemir/ssi/amaryl. 3. 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
--- NOTE | 2018-08-10 15:57 | P.PNPOD ---
Subjective Interval history: s/p I and D and bone biopsy.\patient comfortable this am at bedside. Physical Exam Vital signs: Vital Signs 08/09/18 16:00 08/09/18 20:00 08/10/18 00:00 Temperature 97.7 F 97.5 F L 98.0 F Pulse Rate 53 L 60 53 L Respiratory Rate 20 17 15 Blood Pressure 131/60 101/50 L Pulse Oximetry 98 96 94 L 08/10/18 04:00 08/10/18 08:14 08/10/18 13:00 Temperature 97.9 F 97.7 F 97.1 F L Pulse Rate 51 L 50 L 53 L Respiratory Rate 16 16 16 Blood Pressure 107/64 128/58 L 115/58 L Pulse Oximetry 97 99 99 Intake & Output 08/09/18 08/10/18 08/10/18 18:59 06:59 18:59 Intake Total 100 / 100 680 / 680 100 / 100 Output Total 50 / 50 Balance 50 / 50 680 / 680 100 / 100 Weight 108.2 kg Intake: IV 100 / 100 200 / 200 100 / 100 Maxipime Inj 2,000 MG In NS Inj 100 / 100 100 / 100 100 / 100 100 ML @ 200 mls/hr IV.SIG Q12H [facility] Rx#:[id number] Cubicin Inj 600 MG In NS Inj 100 / 100 100 ML @ 200 mls/hr IV.SIG Q24H [facility] Rx#:[id number] Oral 480 / 480 Output: Wound Vac Amount 50 / 50 Left Foot 50 / 50 Other: Mode Setting Left Foot Continuous # Voids 1 3 Date of Last Bowel Movement 08/09/18 Narrative: Intact VAC Minimal drainage NVS unchanged. Medications and Allergies Active Medications: Active Medications Acetaminophen (Tylenol) 650 mg PO Q4H PRN PRN Reason: Temp > 100.4 Hydrocodone Bitart/Acetaminophen ([place] 10/325) 1 tab PO Q4H PRN PRN Reason: PAIN SCALE 1 TO 10 Last Admin: 08/10/18 13:05 Dose: 1 tab Al Hydroxide/Mg Hydroxide (Milk Of Magntsering Liq) 30 ml PO Q12H PRN PRN Reason: Mild Constipation Aspirin (Aspirin Chew) 81 mg PO DAILY [facility] Last Admin: 08/10/18 08:38 Dose: 81 mg Atorvastatin Calcium (Lipitor) 80 mg PO DAILY@1800 [facility] Last Admin: 08/05/18 20:04 Dose: Not Given Bisacodyl (Dulcolax Supp) 10 mg RECTAL DAILY PRN PRN Reason: SEVERE CONSITIPATION Dextrose (D50w Vial) 50 ml IV.PUSH UNSCH PRN PRN Reason: PER HYPOGLYCEMIA PROTOCOL Enoxaparin Sodium (Lovenox Inj) 30 mg SQ Q24H [facility] Last Admin: 08/09/18 22:07 Dose: Not Given Gabapentin (Neurontin) 600 mg PO DAILY [facility] Last Admin: 08/10/18 08:38 Dose: 600 mg Glimepiride (Amaryl) 4 mg PO DAILY [facility] Last Admin: 08/10/18 08:38 Dose: 4 mg Glucagon (Glucagon Inj) 1 mg OTHER PRN PRN PRN Reason: for Hypoglycemia Protocol Hydrochlorothiazide (Hydrodiuril) 25 mg PO DAILY [facility] Last Admin: 08/05/18 09:04 Dose: 25 mg Daptomycin 600 mg/ Sodium (Chloride) 100 mls @ 200 mls/hr IV.SIG Q24H [facility] Last Infusion: 08/09/18 22:29 Dose: Infused Sodium Chloride (Ns Inj) 500 mls @ 30 mls/hr IV.SIG .Q10H [facility] Last Admin: 08/06/18 07:01 Dose: Not Given Cefepime HCl 2,000 mg/ Sodium (Chloride) 100 mls @ 200 mls/hr IV.SIG Q12H [facility] Last Infusion: 08/10/18 11:17 Dose: Infused Insulin Aspart (Novolog Insulin Correctional Sugar Inj) 0 unit SQ ACHS [facility]; Protocol Last Admin: 08/10/18 12:07 Dose: Not Given Insulin Detemir (Levemir Inj) 22 unit SQ DAILY [facility] Last Admin: 08/10/18 08:38 Dose: 22 unit Lactulose (Lactulose Liq) 30 ml PO DAILY PRN PRN Reason: SEVERE CONSITIPATION Lisinopril (Prinivil) 10 mg PO DAILY [facility] Last Admin: 08/10/18 08:37 Dose: 10 mg Lorazepam (Ativan) 0.5 mg PO Q6H PRN PRN Reason: ANXIETY Ondansetron HCl (Zofran Inj) 4 mg IV.PUSH Q6H PRN PRN Reason: NAUSEA OR VOMITING Senna/Docusate Sodium (Radha-Colace) 1 tab PO BID [facility] Last Admin: 08/10/18 08:45 Dose: Not Given Sennosides (Senokot) 17.2 mg PO Q12H PRN PRN Reason: Moderate Constipation Sodium Chloride (Ns Flush) 2 ml IV.FLUSH BID [facility] Last Admin: 08/10/18 08:45 Dose: 2 ml Sodium Chloride (Ns Flush) 2 ml IV.FLUSH PRN PRN PRN Reason: FLUSH AFTER USING IV ACCESS Temazepam (Restoril) 15 mg PO HS PRN PRN Reason: INSOMNIA Last Admin: 08/09/18 21:59 Dose: 15 mg Allergies Allergy/AdvReac Type Severity Reaction Status Date / Time No Known Allergies Allergy Verified 08/04/18 19:47 Home Medications Medication Instructions Recorded Confirmed Type aspirin 81 mg PO DAILY 08/04/18 08/04/18 History empagliflozin [Jardiance] 25 mg PO DAILY 08/04/18 08/04/18 History gabapentin 600 mg PO DAILY 08/04/18 08/04/18 History glimepiride 4 mg PO QAM 08/04/18 08/04/18 History hydrochlorothiazide 25 mg PO DAILY 08/04/18 08/04/18 History hydrocodone-acetaminophen [[place]] 1 tab PO Q4-6H PRN 08/04/18 08/04/18 History insulin aspart U-100 [Novolog 15 unit SUBCUT BID 08/04/18 08/04/18 History Flexpen U-100 Insulin] insulin detemir U-100 [Levemir 22 unit SUBCUT DAILY 08/04/18 08/04/18 History U-100 Insulin] lisinopril 10 mg PO DAILY 08/04/18 08/04/18 History simvastatin 80 mg PO QPM 08/04/18 08/04/18 History Results - Labs CBC & Chem 7: 08/05/18 05:05 08/10/18 09:14 Laboratory Results - last 24 hr 08/09/18 08/09/18 08/10/18 16:49 22:44 07:53 Creatinine Estimated GFR POC Glucose 286 H 233 H 101 08/10/18 08/10/18 09:14 11:58 Creatinine 1.10 Estimated GFR 68 L POC Glucose 87 Microbiology 08/04/18 20:30 Blood - Peripheral Aerobic Blood Culture - Final No growth in 5 days 08/04/18 20:30 Blood - Peripheral Anaerobic Blood Culture - Final No growth in 5 days 08/04/18 20:15 Blood - Peripheral Aerobic Blood Culture - Final No growth in 5 days 08/04/18 20:15 Blood - Peripheral Anaerobic Blood Culture - Final No growth in 5 days - Procedures I+D , bone biopsy, wound vac placement by Dr Chua 08/06/2018 Assessment and Plan - Assessment (1) Abscess of left foot including toes Code(s): L02.612 - Cutaneous abscess of left foot Status: Acute (2) Foot osteomyelitis, left Code(s): M86.9 - Osteomyelitis, unspecified Status: Acute - Plan Pending final pathology at [place]. Pending PICC, ID and Medicine coordinating Dr Chua begin coverage in the am.
[2018-08-10] MEDS: DAPTOmycin Inj 600 MG in Sodium Chlor 0.9% Inj 100 ML IV.SIG SCH (22:09)
[2018-08-10] MEDS: Enoxaparin Inj 30 MG/0.3 ML Syringe SQ SCH (22:11)
[2018-08-10] MEDS: Temazepam 15 MG Capsule PO PRN (22:11)
--- NOTE | 2018-08-11 08:39 | P.PNPOD ---
Subjective Interval history: no events, ready to go home once ABX arranged and woundvac arranged. Physical Exam Vital signs: Vital Signs 08/10/18 13:00 08/10/18 16:37 08/10/18 20:00 Temperature 97.1 F L 97.7 F 97.8 F Pulse Rate 53 L 53 L 55 L Respiratory Rate 16 16 20 Blood Pressure 115/58 L 115/59 L 100/52 L Pulse Oximetry 99 98 97 08/11/18 00:00 08/11/18 04:00 Temperature 97.7 F 97.7 F Pulse Rate 76 80 Respiratory Rate 20 20 Blood Pressure 104/52 L 107/64 Pulse Oximetry 98 100 Intake & Output 08/10/18 08/11/18 08/11/18 18:59 06:59 18:59 Intake Total 100 / 100 560 / 560 Output Total 55 / 55 Balance 45 / 45 560 / 560 Weight 108.2 kg Intake: IV 100 / 100 200 / 200 Maxipime Inj 2,000 MG In NS Inj 100 / 100 100 / 100 100 ML @ 200 mls/hr IV.SIG Q12H [facility] Rx#:[id number] Cubicin Inj 600 MG In NS Inj 100 / 100 100 ML @ 200 mls/hr IV.SIG Q24H [facility] Rx#:[id number] Oral 360 / 360 Output: Estimated Blood Loss 5 / 5 Wound Vac Amount 50 / 50 Left Foot 50 / 50 Other: Mode Setting Left Foot Continuous # Voids 2 Date of Last Bowel Movement 08/09/18 # Bowel Movements 1 - Neurological Alert and oriented x3 - Routine Extremities Exam Comments: Left hallux lateral full-thickness wound proximal early red granular tissue noted exposed joint capsule IPJ 2.5 cm 2 cm 1.5 cm depth plantar full-thickness wound IPJ 6 mm to 4 mm probing to flexor tendon. Improvement of redness of the dorsum of the foot, capillary refill time remains of hallux foot remains warm sensation decreased to light touch no crepitus upon range of motion of the digit forefoot hindfoot ankle, distal lateral toe is showing some early ischemic changes while proximal lateral digit is showing early granulation tissue. Medications and Allergies Active Medications: Active Medications Acetaminophen (Tylenol) 650 mg PO Q4H PRN PRN Reason: Temp > 100.4 Hydrocodone Bitart/Acetaminophen ([place] 10/325) 1 tab PO Q4H PRN PRN Reason: PAIN SCALE 1 TO 10 Last Admin: 08/10/18 17:10 Dose: 1 tab Al Hydroxide/Mg Hydroxide (Milk Of Magnesia Liq) 30 ml PO Q12H PRN PRN Reason: Mild Constipation Aspirin (Aspirin Chew) 81 mg PO DAILY [facility] Last Admin: 08/10/18 08:38 Dose: 81 mg Atorvastatin Calcium (Lipitor) 80 mg PO DAILY@1800 [facility] Last Admin: 08/05/18 20:04 Dose: Not Given Bisacodyl (Dulcolax Supp) 10 mg RECTAL DAILY PRN PRN Reason: SEVERE CONSITIPATION Dextrose (D50w Vial) 50 ml IV.PUSH UNSCH PRN PRN Reason: PER HYPOGLYCEMIA PROTOCOL Enoxaparin Sodium (Lovenox Inj) 30 mg SQ Q24H [facility] Last Admin: 08/10/18 22:11 Dose: Not Given Gabapentin (Neurontin) 600 mg PO DAILY [facility] Last Admin: 08/10/18 08:38 Dose: 600 mg Glimepiride (Amaryl) 4 mg PO DAILY [facility] Last Admin: 08/10/18 08:38 Dose: 4 mg Glucagon (Glucagon Inj) 1 mg OTHER PRN PRN PRN Reason: for Hypoglycemia Protocol Hydrochlorothiazide (Hydrodiuril) 25 mg PO DAILY [facility] Last Admin: 08/05/18 09:04 Dose: 25 mg Daptomycin 600 mg/ Sodium (Chloride) 100 mls @ 200 mls/hr IV.SIG Q24H [facility] Last Infusion: 08/10/18 22:39 Dose: Infused Sodium Chloride (Ns Inj) 500 mls @ 30 mls/hr IV.SIG .Q10H [facility] Last Admin: 08/06/18 07:01 Dose: Not Given Cefepime HCl 2,000 mg/ Sodium (Chloride) 100 mls @ 200 mls/hr IV.SIG Q12H [facility] Last Infusion: 08/10/18 21:31 Dose: Infused Insulin Aspart (Novolog Insulin Correctional Sugar Inj) 0 unit SQ ACHS [facility]; Protocol Last Admin: 08/10/18 21:30 Dose: 4 unit Insulin Detemir (Levemir Inj) 22 unit SQ DAILY [facility] Last Admin: 08/10/18 08:38 Dose: 22 unit Lactulose (Lactulose Liq) 30 ml PO DAILY PRN PRN Reason: SEVERE CONSITIPATION Lisinopril (Prinivil) 10 mg PO DAILY [facility] Last Admin: 08/10/18 08:37 Dose: 10 mg Lorazepam (Ativan) 0.5 mg PO Q6H PRN PRN Reason: ANXIETY Ondansetron HCl (Zofran Inj) 4 mg IV.PUSH Q6H PRN PRN Reason: NAUSEA OR VOMITING Senna/Docusate Sodium (Radha-Colace) 1 tab PO BID [facility] Last Admin: 08/10/18 20:02 Dose: Not Given Sennosides (Senokot) 17.2 mg PO Q12H PRN PRN Reason: Moderate Constipation Sodium Chloride (Ns Flush) 2 ml IV.FLUSH BID [facility] Last Admin: 08/10/18 21:46 Dose: 2 ml Sodium Chloride (Ns Flush) 2 ml IV.FLUSH PRN PRN PRN Reason: FLUSH AFTER USING IV ACCESS Temazepam (Restoril) 15 mg PO HS PRN PRN Reason: INSOMNIA Last Admin: 08/10/18 22:11 Dose: 15 mg Allergies Allergy/AdvReac Type Severity Reaction Status Date / Time No Known Allergies Allergy Verified 08/04/18 19:47 Home Medications Medication Instructions Recorded Confirmed Type aspirin 81 mg PO DAILY 08/04/18 08/04/18 History empagliflozin [Jardiance] 25 mg PO DAILY 08/04/18 08/04/18 History gabapentin 600 mg PO DAILY 08/04/18 08/04/18 History glimepiride 4 mg PO QAM 08/04/18 08/04/18 History hydrochlorothiazide 25 mg PO DAILY 08/04/18 08/04/18 History hydrocodone-acetaminophen [[place]] 1 tab PO Q4-6H PRN 08/04/18 08/04/18 History insulin aspart U-100 [Novolog 15 unit SUBCUT BID 08/04/18 08/04/18 History Flexpen U-100 Insulin] insulin detemir U-100 [Levemir 22 unit SUBCUT DAILY 08/04/18 08/04/18 History U-100 Insulin] lisinopril 10 mg PO DAILY 08/04/18 08/04/18 History simvastatin 80 mg PO QPM 08/04/18 08/04/18 History Results - Labs CBC & Chem 7: 08/05/18 05:05 08/10/18 09:14 Laboratory Results - last 24 hr 08/10/18 08/10/18 08/10/18 09:14 11:58 17:13 Creatinine 1.10 Estimated GFR 68 L POC Glucose 87 264 H 08/10/18 20:27 Creatinine Estimated GFR POC Glucose 245 H - Procedures I+D , bone biopsy, wound vac placement by Dr Chua 08/06/2018 Assessment and Plan - Assessment (1) Abscess of left foot including toes Code(s): L02.612 - Cutaneous abscess of left foot Status: Acute (2) Foot osteomyelitis, left Code(s): M86.9 - Osteomyelitis, unspecified Status: Acute - Plan Status post incision and drainage bone debridement with application of wound VAC day 4. Wound VAC changed today very mild improvement noted, toe remains viable however severe soft tissue loss once again reviewed with patient with early ischemic changes. Bone biopsy is + OM, culture was sent to [facility] still pending- I spoke with case management to look into this. We discussed amputation of the hallux if there is continued ischemic changes. Pt wishes to give wound vac and ABX a few weeks before consider. I do believe he is seeing that there is a high chance of needing hallux amputation regardless of what we do at this point.
[2018-08-11 08:47] LABS: Baso % (Auto) 0.4 % (0.0-2.0); Eos # (Auto) 0.1 th/mm3 (0.0-0.4); Eos % (Auto) 1.2 % (0.0-4.0); Hematocrit 37.7 % (39.0-51.0); Hemoglobin 12.5 gm/dL (13.0-17.0); Lymph # (Auto) 1.6 th/mm3 (1.0-4.8); Mean Corpuscular HGB Conc 33.2 % (32.0-36.0); Mean Corpuscular Hemoglobin 28.9 pg (27.0-34.0); Mean Corpuscular Volume 87.1 fL (80.0-100.0); Mean Platelet Volume 7.1 fL (7.0-11.0); Mono # (Auto) 0.5 th/mm3 (0.0-0.9); Mono % (Auto) 5.4 % (0.0-8.0); Neut # (Auto) 6.8 th/mm3 (1.8-7.7); Platelet Count 294 th/mm3 (150-450); Red Blood Count 4.33 mil/mm3 (4.50-5.90); Red Cell Distribution Width 14.1 % (11.6-17.2); White Blood Count 9.1 th/mm3 (4.0-11.0)
[2018-08-11 08:55] LABS: Activated Partial Thrombo Time 27.3 sec (23.4-31.7); Prothrombin Time 10.6 sec (9.8-11.6)
[2018-08-11] MEDS: Gabapentin 300 MG Capsule PO SCH (09:12)
[2018-08-11] MEDS: Glimepiride 4 MG Tablet PO SCH (09:12)
[2018-08-11] MEDS: Lisinopril 10 MG Tablet PO SCH (09:13)
[2018-08-11] MEDS: LORazepam 0.5 MG Tablet PO PRN ×3 (09:14→16:26)
--- NOTE | 2018-08-11 09:51 | P.DCO ---
Post Hospital Infusion Therapy - Infusion Therapy Location of Infusion Therapy: Home Health Care IV Infusion Order - Patient Information Patient Weight: 108.2 kg - Diagnosis (1) Foot osteomyelitis, left Code(s): M86.9 - Osteomyelitis, unspecified (2) Abscess of left foot including toes Code(s): L02.612 - Cutaneous abscess of left foot - Administer Medication Piperacillin/Tazobactam Dose: 3.375 grams IV Directions: q 6 hours Stop Treatment: 09/08/18 - Additional Information Venous Access: PICC Line Additional Instructions: [x] Peripheral flush and dressing changes per protocol [x] Implanted port and central liner roll changer: * Implanted port: 10 ml Normal Saline followed by 5 ml Heparin 100 units/ml Heparin flush after each use and monthly to maintain. [] May leave port accessed during therapy. [] May leave peripheral site accessed for duration of therapy. [x] If patient has SOB or respiratory distress, check oxygen saturation. If less than 90% or clinical signs of respiratory distress, administer oxygen at 2 L/min. via nasal cannula and notify physician. [x] Anaphylaxis/Reaction orders: * Stop infusion. * Keep IV line open with saline flush. * Notify physician. * Monitor vital signs every 15 minutes until symptoms resolve. * Check Oxygen saturation; Oxygen at 2 L/min. via nasal cannula if less than 90% or clinical signs of respiratory distress. * Administer diphenhydramine (Benadryl) 25 mg IV STAT, (unless patient has received as pre-med). May repeat once, if necessary. * Solu-Cortef 250 mg IVP over 30-60 seconds, use 100 mg vials for each dissolution. * Epinephrine (1mg/1 ml) 0.3 mg subcutaneously or IVP now with any signs of respiratory distress. * Check with physician for new additional pre-med orders if patient is re- challenged or re-treated. [x] May remove PICC line when treatment complete, after confirming with Physician. [x] If the patient is admitted to the hospital, the ED, or transferred via [facility] , complete transfer form including medication reconciliation order sheet. Weekly Labs: BMP, CBC w/diff Additional Information: Follow-up with Dr. Luevano in 1 week. - Case Management Consult Case Management Consult-IVF: Yes - Patient Information Allergies No Known Allergies Allergy (Verified 08/04/18 19:47)
--- NOTE | 2018-08-11 09:55 | P.PNID ---
Subjective Remarks: Patient says he feels okay. Anxious. Wound culture from [facility] as corynebacterium species. Afebrile. 58 yo M with known Diabetes for about 16 years and h/o neuropathy developed a left leg cellulitis that extended till his knee and at that time he noticed a blister between his big toe and 2nd toe. He went to urgent care and got Clindamycin and the cellulitis of the leg improved but the blister on toe initially looked like it was getting better but then started draining foul smelling fluid so patient saw the Pharmacy Director who sent him to the hospital. MRI shows sing of osteo. 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 Allergies/Adverse Reactions: Allergies No Known Allergies Allergy (Verified 08/04/18 19:47) Objective Vital Signs 08/10/18 13:00 08/10/18 16:37 08/10/18 20:00 Temperature 97.1 F L 97.7 F 97.8 F Pulse Rate 53 L 53 L 55 L Respiratory Rate 16 16 20 Blood Pressure 115/58 L 115/59 L 100/52 L Pulse Oximetry 99 98 97 08/11/18 00:00 08/11/18 04:00 08/11/18 08:00 Temperature 97.7 F 97.7 F 98.0 F Pulse Rate 76 80 59 L Respiratory Rate 20 20 20 Blood Pressure 104/52 L 107/64 146/74 H Pulse Oximetry 98 100 97 08/11/18 09:13 Temperature Pulse Rate Respiratory Rate 18 Blood Pressure Pulse Oximetry Intake & Output 08/10/18 08/11/18 08/11/18 18:59 06:59 18:59 Intake Total 100 / 100 560 / 560 Output Total 55 / 55 Balance 45 / 45 560 / 560 Weight 108.2 kg 108.2 kg Intake: IV 100 / 100 200 / 200 Maxipime Inj 2,000 MG In NS Inj 100 / 100 100 / 100 100 ML @ 200 mls/hr IV.SIG Q12H [facility] Rx#:[id number] Cubicin Inj 600 MG In NS Inj 100 / 100 100 ML @ 200 mls/hr IV.SIG Q24H [facility] Rx#:[id number] Oral 360 / 360 Output: Estimated Blood Loss 5 / 5 Wound Vac Amount 50 / 50 Left Foot 50 / 50 Other: Mode Setting Left Foot Continuous # Voids 2 Date of Last Bowel Movement 08/09/18 # Bowel Movements 1 08/04/18 21:14 Wound - Foot Gram Stain - Final 08/04/18 21:14 Wound - Foot Wound Culture - Final Corynebacterium species Prevotella bivia 08/04/18 20:30 Blood - Peripheral Aerobic Blood Culture - Final No growth in 5 days 08/04/18 20:30 Blood - Peripheral Anaerobic Blood Culture - Final No growth in 5 days 08/04/18 20:15 Blood - Peripheral Aerobic Blood Culture - Final No growth in 5 days 08/04/18 20:15 Blood - Peripheral Anaerobic Blood Culture - Final No growth in 5 days 08/06/18 07:40 Tissue - Foot Gram Stain - Final 08/06/18 07:40 Tissue - Foot Wound Culture - Final Haemophilus parainfluenzae Mixed Anaerobes Group B beta Strep 08/06/18 07:40 Other Acid Fast Bacilli Smear - Final No acid fast bacilli seen 08/06/18 07:40 Other Mycobacterial Culture - Pending Lab - Hematology Results 08/11/18 08:21 WBC 9.1 RBC 4.33 L Hgb 12.5 L Hct 37.7 L MCV 87.1 MCH 28.9 MCHC 33.2 RDW 14.1 Plt Count 294 MPV 7.1 Neut % (Auto) 75.0 H Lymph % (Auto) 18.0 Mayes % (Auto) 5.4 Eos % (Auto) 1.2 Baso % (Auto) 0.4 Neut # (Auto) 6.8 Lymph # (Auto) 1.6 Mayes # (Auto) 0.5 Eos # (Auto) 0.1 Baso # (Auto) 0.0 WBC Differential . Differential Comment Auto diff final Lab - Chemistry Results 08/09/18 08/09/18 08/09/18 11:46 16:49 22:44 Creatinine Estimated GFR POC Glucose 184 H 286 H 233 H 08/10/18 08/10/18 08/10/18 07:53 09:14 11:58 Creatinine 1.10 Estimated GFR 68 L POC Glucose 101 87 08/10/18 08/10/1808/11/18 17:13 20:27 09:09 Creatinine Estimated GFR POC Glucose 264 H 245 H 107 Imaging: ITS Impressions Foot X-Ray 08/04/18 00:00 CONCLUSION: Soft tissue ulceration lateral aspect great toe distally. Possible early bone erosion of the distal pole proximal phalanx indicating possible osteomyelitis. Extremity Arterial Study 08/05/18 00:00 CONCLUSION: 1. Normal range bilateral ankle brachial indices. Foot MRI 08/05/18 07:10 CONCLUSION: 1. Abnormal enhancement and marrow signal in the first proximal phalanx characteristic of osteomyelitis. 2. Soft tissue swelling with ulceration along the inferior aspect of the first proximal phalanx with small apparent focal fluid collection with surrounding enhancement which could represent a small abscess. Aorta w/Runoff CTA 08/06/18 00:00 CONCLUSION: 1. Diffuse mild atherosclerotic disease of the abdomen and pelvis noted. Diffuse mild atherosclerotic disease of the lower extremities also noted. Mild stenosis of the proximal left common iliac artery and distal right superficial femoral artery. No evidence of high-grade stenosis. Peroneal arteries are somewhat diminutive bilaterally. Anterior tibial and posterior tibial arteries are widely patent in the lower legs bilaterally. 2. Splenomegaly. 3. Degenerative findings of lumbar spine. 4. Soft tissue edema of the left great toe. Physical Exam: GENERAL: Alert and oriented, no acute distress. HEENT: Pupils reactive to light. Extraocular movements intact. No icterus. NECK: Supple without adenopathy. No swelling. LUNGS: Clear to auscultation HEART: Regular rate and rhythm. No murmurs. No rubs. No gallops. ABDOMEN: Bowel sounds present, soft, nontender. EXTREMITIES: No clubbing, cyanosis. The right great toe is still markedly swollen and has erythema. Vacuum device in place. SKIN: No diffuse rash. NEUROLOGIC: No focal finding. PSYCH: Calm and cooperative. Lines without evidence of infection. Assessment and Plan (1) Foot osteomyelitis, left Status: Acute Code(s): M86.9 - Osteomyelitis, unspecified (2) Abscess of left foot including toes Status: Acute Code(s): L02.612 - Cutaneous abscess of left foot (3) Diabetes Status: Acute Code(s): E11.9 - Type 2 diabetes mellitus without complications (4) Hypertension Status: Chronic Code(s): I10 - Essential (primary) hypertension - Plan Impression: Wound infection of the right great toe with osteomyelitis. Mixed organisms. Includes group B beta strep, Haemophilus and anaerobic. Diabetes mellitus. Recommendations: Stop vancomycin. Stop cefepime. Give Zosyn IV x 4 weeks and follow-up with Dr. Luevano in 1 week. Orders written for IV Zosyn until September 08, 2018. Orders written for lab follow-up. CBC and BMP weekly. Patient can be discharged from ID standpoint when antibiotics are arranged. (3) Diabetes Qualifiers: Diabetes mellitus type: type 2 Diabetes mellitus complication detail: with other skin ulcer (4) Hypertension Qualifiers: Hypertension type: essential hypertension Qualified Code(s): I10 - Essential (primary) hypertension
--- NOTE | 2018-08-11 10:11 | P.DCO ---
Diagnosis (1) Foot osteomyelitis, left: Status: Acute (2) Abscess of left foot including toes: Status: Acute Home Health Nursing Order: Wound care and dressing changes, Nursing assessment with vital signs and IV medication administration Instructions: Wound vac orders per Dr. Chua Case Management Consult Case Management Consult-Home Health: Yes I have seen patient Ulises Diaz on 08/11/18. My clinical findings support the need for the requested home health care services because: Injectable medication education/administration I certify that my clinical findings support that this patient is homebound because: Post-op weakness _ (1) Foot osteomyelitis, left Qualifiers: Osteomyelitis type:
[2018-08-11] MEDS: Piperacil/Tazo 3.375 GM Premix 3.375 GM/50 ML PIGGYBACK IV.SIG SCH ×2 (11:00→17:14)
[2018-08-11] MEDS: Senna/Docusate Sodium 8.6/50 MG Tablet PO SCH (11:40)
[2018-08-11] MEDS: Insulin NovoLOG Aspart Correctional Sugar Inj SQ SCH ×2 (11:41→15:05)
[2018-08-11] MEDS ORDERED: Heparin Central Flush 100 UNIT/ML 5 ML Vial IV.FLUSH PRN (12:22)
--- NOTE | 2018-08-11 13:33 | P.DS ---
DS: Providers Date of admission: 08/05/18 12:28 Primary care physician: Mono Cisneros MD, PhD Consults: 08/04/18 22:46 Consult to Podiatry Routine Consulting Provider: Shawanda Gannon Preferred Applications Consultant:: David Fadi Montemayorom Patient known to:: David Hart Reason for Consultation: pt sent by him for admission Notified:: Service Spoke with:: jorge Date Notified:: 08/05/18 Time Notified:: 02:17 Comments:: call [facility] aware pt known to radha, consult to nadia per call center Ordering Provider: JIMMIE 08/05/18 11:58 Consult to Infectious Diseases Routine Consulting Provider: Leticia Luevano Reason for Consultation: Diabetic with osteomyelitis Notified:: Service Spoke with:: Rosanne Date Notified:: 08/05/18 Time Notified:: 12:31 Ordering Provider: JIMMIE 08/06/18 08:12 Consult to Vascular Surgery Routine Consulting Provider: Mike Perry Preferred Applications Consultant:: Mike Perry Reason for Consultation: PVD left foot, SP I and D Hallux Notified:: Physician Spoke with:: asst answered phone and took info, Dr Perry was in surgery Date Notified:: 08/06/18 Time Notified:: 08:31 Comments:: Patient will need to be transferred to [facility]. Ordering Provider: GABO 08/07/18 11:53 Consult to Infectious Diseases Routine Consulting Provider: Nhan Ribera Reason for Consultation: osteo toe/deep tissue infection. Notified:: Service Spoke with:: Claribel Date Notified:: 08/07/18 Time Notified:: 11:55 Ordering Provider: JENA 08/11/18 10:20 HUB Only Consult Order Routine Consulting Provider: [facility] Reason for Consultation: [facility] Notified:: Office Spoke with:: LAVON Date Notified:: 08/11/18 Time:: 10:20 Brief History from admission: Patient is a pleasant 58yr old male with hx of diabetes who developed redness and swelling of his left foot up his leg after a trip to [facility]. He was seen at [facility] and diagnosed with cellultis and treated with clindamycin, his follow up visit showed improvement of the lower extremity redness. 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 He took a wound culture according to the patient was concerned with the appearence of the foot as the proximal foot had severe cellulitis and tissue loss by his evaluation. The patient was advised to come to the ER for IV antibiotics and MRI to evaluate for osteomyelitis. The patient states he has undergone surgery for something similar in his rt foot. He also tells me the left foot has had extensive surgery under that big toe for excision of squamous cell with flap placement. 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 He denies any fever , chills or pain . DS: Diagnosis Discharge Diagnosis (1) Foot osteomyelitis, left: Status: Acute (2) Abscess of left foot including toes: Status: Acute DS: Summary Pt is a 58 yo male with diabetes who developed redness and swelling of his left foot which spread up his leg after a trip to [facility]. He was seen at [facility] and diagnosed with cellulitis and treated with clindamycin, his follow up visit showed improvement of the lower extremity redness. The patient was continued on clindamycin until 08/04/18 when he had a follow up with his bus and rail operator. He took a wound culture according to the patient was concerned with the appearance of the foot as the proximal foot had severe cellulitis and tissue loss by his evaluation. The patient was sent to [facility] for IV antibiotics and MRI to evaluate for osteomyelitis. MRI of the foot (08/05/18) revealed abnormal enhancement and marrow signal in the first proximal phalanx characteristic of osteomyelitis, soft tissue swelling with ulceration along the inferior aspect of the first proximal phalanx with small apparent focal fluid collection with surrounding enhancement which could represent a small abscess. He was seen by ID and initially given Vancomycin which was switched to Daptomycin and Rocephin on 08/05/18. Pt was seen by podiatry and underwent I&D with debridement with bone biopsy and wound vac placement on 08/06/18. CTA with runoff was performed on 08/06/18 which noted diffuse mild atherosclerotic disease of the abdomen and pelvis noted, diffuse mild atherosclerotic disease of the lower extremities, mild stenosis of the proximal left common iliac artery and distal right superficial femoral artery, no evidence of high-grade stenosis. Peroneal arteries are somewhat diminutive bilaterally. Anterior tibial and posterior tibial arteries are widely patent in the lower legs bilaterally. Pt was transferred to [facility] on 08/07/18 for vascular surgery evaluation. There was no surgical procedure recommended at that time. Patients bone bx revealed acute osteomyelitis. Wound culture on 08/04/18 revealed Prevotella bivia and was sent to [facility] to further characterize a gram positive bacilli which turned out to be Corynebacterium sp. Wound culture from 08/06/18 grew out Haemophilus parainfluenza, group B beta strep, mixed anaerobes Antibiotics were changed from Rocephin to Cefepime on 08/07 and he was continued on Daptomycin. The final cultures returned from [facility] on 08/11/18 and ID gave final antibiotic recommendations for Zosyn 3.375grams IV Q6H for 4 weeks (through 09/08/18). Pt had PICC line placed on 08/11/18. He is to follow-up with Dr. Luevano in 1 week. Orders written for lab follow-up, CBC and BMP weekly with results to Dr. Luevano. Pt had wound vac changed on 08/08/18 and again on the day of discharge, . He is to followup with Dr. Hart in 1 week and wound vac orders per Dr. Hart. Pt is to followup with his PCP, Dr. Cisneros, in 1 week as well. Attending Attestation: The exam, history, and the medical decision-making described in the above note were completed with the assistance of the mid-level provider. I reviewed and agree with the findings presented. I attest that I had a [id number] encounter with the patient on the same day, and personally performed and documented my assessment and findings in the medical record. Patient examined. Assessment and plan formulated with Mariah Horton PA-C. I agree with the above. Time Spent with Patient Total time spent providing and/or coordinating discharge services: Quality: VTE Deep Vein Thrombosis/Pulmonary Embolism Present on Admission: No Results Procedures completed during hospitalization: I+D , bone biopsy, wound vac placement by Dr Hart 08/06/2018 Labs on day of discharge: Labs from last 24 hours 08/11/18 08/11/18 08/11/18 12:08 09:09 08:21 WBC RBC Hgb Hct MCV MCH MCHC RDW Plt Count MPV Neut % (Auto) Lymph % (Auto) [place] % (Auto) Eos % (Auto) Baso % (Auto) Neut # (Auto) Lymph # (Auto) Kent # (Auto) Eos # (Auto) Baso # (Auto) WBC Differential Differential Comment PT 10.6 INR 1.0 APTT 27.3 POC Glucose 149 H 107 08/11/18 08/10/18 08/10/18 08:21 20:27 17:13 WBC 9.1 RBC 4.33 L Hgb 12.5 L Hct 37.7 L MCV 87.1 MCH 28.9 MCHC 33.2 RDW 14.1 Plt Count 294 MPV 7.1 Neut % (Auto) 75.0 H Lymph % (Auto) 18.0 Kent % (Auto) 5.4 Eos % (Auto) 1.2 Baso % (Auto) 0.4 Neut # (Auto) 6.8 Lymph # (Auto) 1.6 Kent # (Auto) 0.5 Eos # (Auto) 0.1 Baso # (Auto) 0.0 WBC Differential . Differential Comment Auto diff final PT INR APTT POC Glucose 245 H 264 H Impressions ITS Impressions Foot X-Ray 08/04/18 00:00 CONCLUSION: Soft tissue ulceration lateral aspect great toe distally. Possible early bone erosion of the distal pole proximal phalanx indicating possible osteomyelitis. Extremity Arterial Study 08/05/18 00:00 CONCLUSION: 1. Normal range bilateral ankle brachial indices. Foot MRI 08/05/18 07:10 CONCLUSION: 1. Abnormal enhancement and marrow signal in the first proximal phalanx characteristic of osteomyelitis. 2. Soft tissue swelling with ulceration along the inferior aspect of the first proximal phalanx with small apparent focal fluid collection with surrounding enhancement which could represent a small abscess. Aorta w/Runoff CTA 08/06/18 00:00 CONCLUSION: 1. Diffuse mild atherosclerotic disease of the abdomen and pelvis noted. Diffuse mild atherosclerotic disease of the lower extremities also noted. Mild stenosis of the proximal left common iliac artery and distal right superficial femoral artery. No evidence of high-grade stenosis. Peroneal arteries are somewhat diminutive bilaterally. Anterior tibial and posterior tibial arteries are widely patent in the lower legs bilaterally. 2. Splenomegaly. 3. Degenerative findings of lumbar spine. 4. Soft tissue edema of the left great toe. Discharge Plan Discharge Disposition Patient Disposition: W/Home Health Service Discharge Condition Condition: Stable Discharge Order Discharge Orders: Discharge Order (Routine); Ordered 08/11/18 Ordered By: Cristino Wilson Discharge Details Anticipated Discharge Date: 08/11/18 Discharge Comment: Patient is followup with Dr. Hart in 1 week. Wound vac change orders per Dr. Hart. Patient is to followup with Dr. Luevano in 1 week. Patient is to followup with Dr. Cisneros in 1 week. Physicians Team Primary Care Provider: Mono Cisneros Attending Provider: Nicko Corona Other Providers: Shawanda Gannon ; Leticia Luevano ; Mike Perry ; Nhan Ribera ; Marcus Salcido,Veronica ; David Hart Rxs /Orders / Referrals /Forms Prescriptions: New piperacillin-tazobactam [Zosyn] 3.375 gram recon soln 3.375 g IV.SIG Q6H 28 Days RF: 0 lorazepam 0.5 mg Tablet 0.5 mg PO Q6H PRN (Reason: Anxiety) Qty: 30 RF: 0 Continue gabapentin 600 mg Tablet 600 mg PO DAILY RF: 0 aspirin 81 mg Tablet,Chewable 81 mg PO DAILY RF: 0 insulin aspart U-100 [Novolog Flexpen U-100 Insulin] 100 unit/mL Insulin Pen 15 unit SUBCUT BID RF: 0 insulin detemir U-100 [Levemir U-100 Insulin] 100 unit/mL Solution 22 unit SUBCUT DAILY RF: 0 simvastatin 80 mg Tablet 80 mg PO QPM RF: 0 hydrocodone-acetaminophen [[place]] 10-325 mg Tablet 1 tab PO Q4-6H PRN (Reason: Pain) RF: 0 lisinopril 10 mg Tablet 10 mg PO DAILY RF: 0 glimepiride 4 mg Tablet 4 mg PO QAM RF: 0 hydrochlorothiazide 25 mg Tablet 25 mg PO DAILY RF: 0 empagliflozin [Jardiance] 25 mg Tablet 25 mg PO DAILY RF: 0 Referrals: [facility] [Agency] - See Instructions Mono Cisneros MD, PhD [Primary Care Provider] - See Instructions Discharge Instructions Patient Printed Instructions: Lorazepam (By mouth), Piperacillin/Tazobactam ( By injection) Status ED Status: Left Department Discharge Information Discharge Date/Time: 08/11/18 19:33
[2018-08-11] MEDS: Insulin Detemir Inj 1,000 UNIT/10 ML Vial SQ SCH (15:04)
[2018-08-12] MEDS ORDERED: Heparin Central Flush 100 UNIT/ML 5 ML Vial IV.FLUSH SCH (09:00)
== END 2018-08-11 19:33 | disposition home health service (06) ==
LOC: PHED 19:38 → PHEDA 19:38 → PH3 23:03 → N05 08-06 20:20
PROVIDERS: ADMIT Hospitalist; ATTEND Hospitalist
DX: M86.172 Other acute osteomyelitis, left ankle and foot; Z86.14 Personal history of Methicillin resistant Staphylococcus aureus infection; I12.9 Hypertensive chronic kidney disease with stage 1 through stage 4 chronic kidney disease, or unspecified chronic kidney disease; F17.290 Nicotine dependence, other tobacco product, uncomplicated; Z79.82 Long term (current) use of aspirin; Z85.828 Personal history of other malignant neoplasm of skin; N18.9 Chronic kidney disease, unspecified; E11.69 Type 2 diabetes mellitus with other specified complication; Z95.5 Presence of coronary angioplasty implant and graft; E11.42 Type 2 diabetes mellitus with diabetic polyneuropathy; E11.22 Type 2 diabetes mellitus with diabetic chronic kidney disease; Z79.4 Long term (current) use of insulin; I25.2 Old myocardial infarction